=== PATIENT | female | born 1985 | race African-American/Black ===

== ENCOUNTER 2019-12-18 09:13 | Outpatient (REF) | payer OTHER, SELFPAY ==
[2019-12-18 09:57] LABS: MANUAL DIFF FLAG NO
[2019-12-18 10:21] LABS: Basophils Percent Auto 0.5 % (0-2); Eosinophils Absolute Auto 0.2 X10*3/uL (0.0-0.4); Hemoglobin 11.3 g/dl (12.0-16.0); Imm Gran Abs Auto 0.02 X10*3/uL (0.00-0.03); Imm Gran Pct Auto 0.3 % (0.0-0.4); Lymphocytes Absolute Auto 2.2 X10*3/uL (1.2-4.9); Lymphocytes Percent Auto 32.6 % (20-40); Mean Corpuscular HGB Conc 31.4 g/dl (31.0-35.0); Mean Corpuscular Hemoglobin 24.2 pg (27.0-33.0); Mean Corpuscular Volume 77.3 fL (80-98); Monocytes Absolute Auto 0.4 X10*3/uL (0.1-1.2); Monocytes Percent Auto 6.6 % (2-11); Neutrophils Absolute Auto 3.8 X10*3/uL (2.0-8.3); Platelet Count 283 X10*3/uL (160-400); Red Blood Count 4.66 X10*6/uL (4.20-5.50); Red Cell Distribution Width 14.6 % (11.0-16.0); White Blood Count 6.7 X10*3/uL (4.8-10.8)
[2019-12-18 11:09] LABS: Creatinine Urine 23.31 mg/dL; Microalbum/Creatinine Ratio Ur 21.4 ug/mg cr
[2019-12-18 11:12] LABS: Alanine Aminotransferase 22 U/L (0-31); Albumin Level 4.6 g/dL (3.5-5.0); Alkaline Phosphatase 61 U/L (39-117); Anion Gap 11 (12-20); Aspartate Amino Transferase 23 U/L (5-31); Bilirubin Total 0.6 mg/dL (0.0-1.0); Blood Urea Nitrogen 9 mg/dL (9-16); Calcium 9.1 mg/dL (8.4-10.2); Carbon Dioxide 28 mmol/L (22-29); Chloride 103 mmol/L (96-108); Cholesterol 114 mg/dL; Estimated Glomerular Filt Rate > 60; Glucose Fasting 105 mg/dL (60-99); HDL Cholesterol 45 mg/dL; LDL Cholesterol Calculated 53 mg/dl; Potassium 3.9 mmol/l (3.3-5.1); Sodium 138 mmol/L (135-145); Total Protein 7.8 g/dL (6.5-8.0); Triglycerides 80 mg/dL
[2019-12-18 11:38] LABS: Thyroid Stimulating Hormone 0.95 mIU/mL (0.32-4.0)
== END 2019-12-18 09:14 | disposition home or self-care (01) ==
LOC: HO.LAB 09:13
PROVIDERS: PCP Internal Medicine; Visit Provider Physician Assistant
DX: I10 Essential (primary) hypertension (principal)
CPT/HCPCS: 36415; 80053; 80061; 82043; 84443; 85025

== ENCOUNTER 2020-06-15 09:46 | Emergency (ER) | payer OTHER, SELFPAY ==
[2020-06-15 09:52] VITALS: BP 138/102; PULSE 98; RESP 17; TEMP 36.7; O2SAT 99; BMI 30.9
--- NOTE | 2020-06-15 10:06 | PC.NURSE ---
ambulatory with steady gait, changing in to hospital gown for exam
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
[2020-06-15 10:28] VITALS: BP 124/90; PULSE 78; RESP 14; O2SAT 99
== END 2020-06-15 10:35 | disposition home or self-care (01) ==
PROVIDERS: Emergency Provider Emergency Medicine Emergency Medical Services; PCP Internal Medicine
DX: S16.1XXA Strain of muscle, fascia and tendon at neck level, initial encounter (principal); S39.012A Strain of muscle, fascia and tendon of lower back, initial encounter; M54.2 Cervicalgia; M54.6 Pain in thoracic spine; F12.90 Cannabis use, unspecified, uncomplicated; V43.52XA Car driver injured in collision with other type car in traffic accident, initial encounter; Y93.9 Activity, unspecified; Y92.410 Unspecified street and highway as the place of occurrence of the external cause; Y99.9 Unspecified external cause status; Z79.899 Other long term (current) drug therapy
CPT/HCPCS: 99284

== ENCOUNTER 2020-12-15 09:00 | Outpatient (REF) | payer OTHER, SELFPAY ==
--- NOTE | ~2020-12-15 | XR_ITS ---
EXAMINATION: XR CHEST XR THORACIC SPINE CLINICAL INFORMATION: Dorsalgia. COMPARISON: Dorsal spine radiographs 04/29/2014 TECHNIQUE: PA and lateral chest, 3 views thoracic spine. FINDINGS: There are some minimal multilevel degenerative changes seen in the thoracic spine with some mild endplate changes. Vertebral heights and disc spaces are well preserved. Compared to the 2014 study, there has been no interval change. No significant abnormality is seen involving the heart, lungs or mediastinum. XR/XR chest 2V IMPRESSION: Some minimal thoracic spine degenerative changes with no other acute findings.
--- NOTE | ~2020-12-15 | XR_ITS ---
EXAMINATION: XR CHEST XR THORACIC SPINE CLINICAL INFORMATION: Dorsalgia. COMPARISON: Dorsal spine radiographs 04/29/2014 TECHNIQUE: PA and lateral chest, 3 views thoracic spine. FINDINGS: There are some minimal multilevel degenerative changes seen in the thoracic spine with some mild endplate changes. Vertebral heights and disc spaces are well preserved. Compared to the 2014 study, there has been no interval change. No significant abnormality is seen involving the heart, lungs or mediastinum. XR/XR thoracic spine 2V IMPRESSION: Some minimal thoracic spine degenerative changes with no other acute findings.
[2020-12-15 09:44] LABS: Hematocrit 34.6 % (37-47); Hemoglobin 10.7 g/dl (12.0-16.0); Mean Corpuscular HGB Conc 30.9 g/dl (31.0-35.0); Mean Corpuscular Volume 74.2 fL (80-98); Mean Platelet Volume 10.1 fL (9.4-12.3); Platelet Count 298 X10*3/uL (160-400); Red Blood Count 4.66 X10*6/uL (4.20-5.50); Red Cell Distribution Width 15.3 % (11.0-16.0); White Blood Count 6.6 X10*3/uL (4.8-10.8)
[2020-12-15 10:19] LABS: Alanine Aminotransferase 21 U/L (0-31); Albumin Level 4.5 g/dL (3.5-5.0); Alkaline Phosphatase 61 U/L (39-117); Anion Gap 9 (12-20); Aspartate Amino Transferase 20 U/L (5-31); Bilirubin Total 0.3 mg/dL (0.0-1.0); Blood Urea Nitrogen 11 mg/dL (9-16); Calcium 9.4 mg/dL (8.4-10.2); Carbon Dioxide 28 mmol/L (22-29); Chloride 105 mmol/L (96-108); Cholesterol 110 mg/dL; Estimated Glomerular Filt Rate > 60; Glucose Fasting 98 mg/dL (60-99); HDL Cholesterol 42 mg/dL; LDL Cholesterol Calculated 54 mg/dl; Potassium 4.1 mmol/L (3.3-5.1); Sodium 138 mmol/L (135-145); Triglycerides 70 mg/dL
[2020-12-15 10:24] LABS: Estimated Average Glucose 103 mg/dL; Hemoglobin A1c % 5.2 %
[2020-12-15 10:39] LABS: TSH reflex Free T4 1.24 uIU/mL (0.32-4.0)
[2020-12-15 12:26] LABS: Creatinine Urine 65.76 mg/dL; Microalbum/Creatinine Ratio Ur 10.6 ug/mg cr
== END 2020-12-15 09:01 | disposition home or self-care (01) ==
LOC: HO.XRAY 09:00
PROVIDERS: PCP Internal Medicine; Visit Provider Physician Assistant
DX: M54.9 Dorsalgia, unspecified (principal); I10 Essential (primary) hypertension; R73.09 Other abnormal glucose
CPT/HCPCS: 36415; 71046; 72070; 80053; 80061; 82043; 83036; 84443; 85027

== ENCOUNTER 2021-08-08 08:13 | Outpatient (REF) | payer OTHER, SELFPAY ==
--- NOTE | ~2021-08-08 | US_ITS ---
EXAMINATION: US ABDOMEN COMPLETE CLINICAL INFORMATION: Abnormal blood chemistry, cholelithiasis. COMPARISON: Ultrasound abdomen complete 05/17/2019. TECHNIQUE: Real-time imaging of the abdominal viscera. FINDINGS: PANCREAS: Normal. ABDOMINAL AORTA: The proximal, mid, and distal segments are normal in caliber. INFERIOR VENA CAVA: Visualized portions are normal. LIVER: The liver is normal in size. The liver contour is normal. There is diffuse increased liver echogenicity with focal fatty sparing adjacent to liver. No focal hepatic lesion. There is no intrahepatic biliary duct dilatation seen. GALLBLADDER: Gallbladder wall thickness is 0.3 cm. The gallbladder is physiologically distended. Multiple mobile gallstones are present. No evidence of gallbladder wall thickening or pericholecystic fluid. COMMON BILE DUCT: Normal in caliber measuring 0.5 cm in diameter. RIGHT KIDNEY: Normal. No hydronephrosis. No renal calculi or focal parenchymal lesions. The kidney measures 11.9 cm in maximum dimension. LEFT KIDNEY: Normal. No hydronephrosis. No renal calculi or focal parenchymal lesions. The kidney measures 10.9 cm in maximum dimension. SPLEEN: Normal. The spleen measures 9.2 cm in maximum dimension. FREE FLUID: None. US/US abdomen complete IMPRESSION: Diffuse hepatic steatosis with focal fatty sparing adjacent to gallbladder. No solid lesion seen. Rest of the abdominal ultrasound is unremarkable.
--- NOTE | ~2021-08-08 | XR_ITS ---
EXAMINATION: XR CHEST 2 VIEWS CLINICAL INFORMATION: Dorsalgia. COMPARISON: Chest radiographs dated 12/15/2020. TECHNIQUE: Frontal and lateral views of the chest were obtained. FINDINGS: The heart, great vessels, pulmonary vasculature and mediastinum are normal. The lungs show no focal infiltrate, effusion or pneumothorax. There is no acute osseous abnormality. XR/XR chest 2V IMPRESSION: No active cardiopulmonary disease.
[2021-08-08 09:03] LABS: MANUAL DIFF FLAG NO
[2021-08-08 09:39] LABS: Basophils Percent Auto 0.3 % (0-2); Eosinophils Absolute Auto 0.2 X10*3/uL (0.0-0.4); Eosinophils Percent Auto 2.2 % (0-4); Hematocrit 38.6 % (37.0-47.0); Hemoglobin 11.9 g/dl (12.0-16.0); Imm Gran Abs Auto 0.01 X10*3/uL (0.00-0.03); Imm Gran Pct Auto 0.1 % (0.0-0.4); Immature Retic Fraction 10.9 % (3.0-15.9); Lymphocytes Absolute Auto 1.9 X10*3/uL (1.2-4.9); Mean Corpuscular HGB Conc 30.8 g/dl (31.0-35.0); Mean Corpuscular Hemoglobin 24.9 pg (27.0-33.0); Mean Corpuscular Volume 80.9 fL (80.0-98.0); Mean Platelet Volume 10.6 fL (9.4-12.3); Monocytes Absolute Auto 0.5 X10*3/uL (0.1-1.2); Neutrophils Absolute Auto 4.1 x10*3/uL (2.0-8.3); Neutrophils Percent Auto 61.4 % (45-73); Platelet Count 232 X10*3/uL (160-400); Red Blood Count 4.77 X10*6/uL (4.20-5.50); Red Cell Distribution Width 13.7 % (11.0-16.0); Retic HGB Equivalent 29.5 pg (30.0-35.0); Reticulocyte Percent 1.9 % (0.5-1.8); Reticulocytes Absolute 0.092 X10*6/uL (0.026-0.095); White Blood Count 6.7 X10*3/uL (4.8-10.8)
[2021-08-08 10:14] LABS: Alanine Aminotransferase 35 U/L (0-31); Albumin Level 4.3 g/dL (3.5-5.0); Alkaline Phosphatase 53 U/L (39-117); Anion Gap 10 (12-20); Aspartate Amino Transferase 27 U/L (5-31); Bilirubin Total 0.6 mg/dL (0.0-1.0); Blood Urea Nitrogen 11 mg/dL (9-16); Calcium 9.2 mg/dL (8.4-10.2); Carbon Dioxide 27 mmol/L (22-29); Chloride 105 mmol/L (96-108); Estimated Glomerular Filt Rate > 60; Glucose Random 97 mg/dL (60-115); Iron 91 mcg/dL (30-160); Percent Iron Saturation 26 % (15-50); Potassium 4.1 mmol/L (3.3-5.1); Sodium 138 mmol/L (135-145); Total Iron Binding Capacity 349 mcg/dL (228-428); Total Protein 7.6 g/dL (6.5-8.0); Unsaturated Iron Binding 258 ug/dL
[2021-08-08 10:27] LABS: Estimated Average Glucose 105 mg/dL; Hemoglobin A1c % 5.3 %
[2021-08-08 10:37] LABS: Ferritin 50 ng/mL (10-122); Thyroid Stimulating Hormone 0.99 uIU/mL (0.32-4.0)
[2021-08-08 11:08] LABS: Folate 11.4 ng/mL (> or = 4.0); Vitamin B12 474 pg/mL (200-900)
== END 2021-08-08 08:14 | disposition home or self-care (01) ==
LOC: HO.US 08:13
PROVIDERS: PCP Internal Medicine; Visit Provider Internal Medicine
DX: M54.9 Dorsalgia, unspecified (principal); D64.9 Anemia, unspecified; R79.89 Other specified abnormal findings of blood chemistry; K80.20 Calculus of gallbladder without cholecystitis without obstruction
CPT/HCPCS: 36415; 71046; 76700; 80053; 82607; 82728; 82746; 83036; 83540; 84443; 85025; 85045

== ENCOUNTER 2021-10-18 06:02 | Day surgery (SDC) | payer OTHER, MEDICAID, SELFPAY ==
[2021-10-12 13:55] VITALS: BMI 33.3
--- NOTE | 2021-10-17 10:09 | HO.ANESPROP2 ---
Documented by User: Lyric Michaels NP 10/17/21 10:10 HPI - Anesthesia Eval Consult details Narrative: 36yo F for Cholecystectomy Laparoscopic,poss open,poss choliangiogram PMFSH Active Problems Active Problems: All Active Problems (Updated 09/07/21 @ 14:50 by Ed Ferrara MD) Biliary colic (Acute) Fatty liver (Acute) Back pain (Acute) Iron deficiency anemia (Acute) Annual physical exam (Acute) Menorrhagia (Acute) Neck pain (Acute) Constipation (Acute) Cholelithiasis (Acute) Obesity (BMI 30-39.9) (Acute) Impaired glucose metabolism (Acute) HTN (hypertension) (Acute) Past Medical History Medical History (Updated 10/17/21 @ 10:10 by Lyric Michaels NP) Anemia Cholelithiasis HTN (hypertension) Iron deficiency anemia Obesity (BMI 30-39.9) Family History Family History Father Medical history unknown Mother Acute CVA (cerebrovascular accident) Hypertension Son In good health Brother No problems noted. Sister No problems noted. Maternal Uncle Stroke Surgical History Surgical History History of breast mammoplasty History of surgery Social History Social History Housing: Apartment Alcohol intake: current Alcohol intake frequency: does not drink Patient Tobacco Use Status: Never used Tobacco Years Smoked: smokes pot e-Cigarette/Vaping Use: Never Used Second Hand Smoke Exposure: No Use of substances other than those prescribed or required for medical reasons: Yes Substance Use Type: Marijuana Are you DNR?: No Advance Directives: No Advance Directives Information Provided: Yes Recently lost weight without trying: No Nutrition Risks: No Nutritional Risk Patient : No Current occupational status: unemployed Cognitive needs: No Hearing needs: No Vision needs: No Meds Allergies Allergy/AdvReac Type Severity Reaction Status Date / Time No Known Allergies Allergy Unknown NOT Verified 09/07/21 14:16 APPLICABLE Home Medications Medication Instructions Recorded Confirmed Last Taken Type ascorbate calcium (vitamin C) 500 500 mg PO BID 03/22/21 09/07/21 Unknown History mg tablet Exam Exam Date and Time: October 17, 2021 1009 Height,Weight and Vital Signs: Height 5 ft 4 in Weight 87.997 kg Pertinent Lab Results Pertinent Lab Results: Laboratory Tests 08/08/21 08/08/21 09:02 09:02 WBC 6.7 Hgb 11.9 L Hct 38.6 Plt Count 232 Sodium 138 Potassium 4.1 Chloride 105 Carbon Dioxide 27 BUN 11 Creatinine 0.73 Assessment and Plan Assessment Anesthesia Assessment: Chart Reviewed Documented by User: Brandon Prather MD 10/18/21 07:17 [facility] Past Medical History Medical History (Updated 10/17/21 @ 10:10 by Lyric Michaels NP) Anemia Cholelithiasis HTN (hypertension) Iron deficiency anemia Obesity (BMI 30-39.9) Patient : No Family History Family History Father Medical history unknown Mother Acute CVA (cerebrovascular accident) Hypertension Son In good health Brother No problems noted. Sister No problems noted. Maternal Uncle Stroke Family history of problems with anesthesia: No Surgical History Surgical History History of breast mammoplasty History of surgery History of Problems with Anesthesia: No Social History Social History Housing: Apartment Alcohol intake: current Alcohol intake frequency: does not drink Patient Tobacco Use Status: Never used Tobacco Years Smoked: smokes pot e-Cigarette/Vaping Use: Never Used Second Hand Smoke Exposure: No Use of substances other than those prescribed or required for medical reasons: Yes Substance Use Type: Marijuana Are you DNR?: No Advance Directives: No Advance Directives Information Provided: Yes Recently lost weight without trying: No Nutrition Risks: No Nutritional Risk Patient : No Current occupational status: unemployed Cognitive needs: No Hearing needs: No Vision needs: No Meds Allergies Allergy/AdvReac Type Severity Reaction Status Date / Time No Known Allergies Allergy Unknown NOT Verified 09/07/21 14:16 APPLICABLE Home Medications Medication Instructions Recorded Confirmed Last Taken Type ascorbate calcium (vitamin C) 500 500 mg PO BID 03/22/21 09/07/21 Unknown History mg tablet Exam Airway Mallampati Class: I TM Dist: >3cm Neck ROM: Full Loose/Missing/Broken Teeth: No Heart: ok Lungs: ok Assessment and Plan Final Anesthetic Review Family History of Problems with Anesthesia: No History of Problems with Anesthesia: No NPO: Yes ASA Class: II Final Preanesthetic Review: No Changes in Pt Med Stat, Meds/Allgs Chart Reviewed, Consent Obtained/Reviewed and Anes Risks/Benef Reviewed Patient Risk: Low Procedure Risk: Intermediate Anesthetic Plan Anesthetic Plan: GA and Agree w/ Assess. and Plan Disposition: Standard PACU
[2021-10-18] VITALS (10 sets, daily range): BP systolic 117–139; BP diastolic 80–106; PULSE 80–99; RESP 16–18; TEMP 36.7–36.9; O2SAT 96–97; BMI 32.5
[2021-10-18 06:30] LABS: UPreg QC Valid YES; Urine Pregnancy NEGATIVE (NEGATIVE)
[2021-10-18] MEDS: Lactated Ringers 1,000 ML 100 ML IVCONT (06:47)
[2021-10-18] MEDS: Acetaminophen 325 MG TABLET 650 MG PO (06:48)
[2021-10-18] MEDS: Heparin Sodium,Porcine 5,000 UNIT/ML VIAL 5000 UNIT SUBCUT (06:48)
--- NOTE | 2021-10-18 07:15 | MHC.SHP ---
Pre-Procedural Eval Section A Date of Service: 10/18/21 The patient is an INPATIENT: No The History & Physical has been completed within 30 days and I have reviewed it.: Yes Section B Chief Complaint: Calculus of bile duct without cholangitis Allergies: Allergies Allergy/AdvReac Type Severity Reaction Status Date / Time No Known Allergies Allergy Unknown NOT Verified 09/07/21 14:16 APPLICABLE Plan I have reviewed the history and physical and performed a pertinent physical examination on my patient. No changes have occurred unless specified.
--- NOTE | 2021-10-18 07:15 | MHC.SHP ---
Pre-Procedural Eval Section A Date of Service: 10/18/21 Section B Chief Complaint: Calculus of bile duct without cholangitis Details of Present Illness: History of biliary colic and cholelithiasis Relevant Family History (Specify if Yes): No Relevant Social History: None Present Medications: see Short Stay Collaborative assessment Medical History: No relevant PMH History of Previous Operations: No relevant previous surgery Allergies: Allergies Allergy/AdvReac Type Severity Reaction Status Date / Time No Known Allergies Allergy Unknown NOT Verified 09/07/21 14:16 APPLICABLE Review of Systems Sugical H&P ROS: Negative: Constitution, Cardiovascular, Respiratory, Neurological, Psychiatric, Hem-Onc, Allergic/Immunologic, Gastrointestinal, Genitourinary, Musculoskeletal, Integumentary, Endocrine and Eyes/Ears/Nose/Throat Exam Surgical H&P Exam: Normal: HEENT, Normal: Heart, Normal: Lungs and Normal: Abdomen Plan Diagnosis/Plan: Unchanged I have reviewed the history and physical and performed a pertinent physical examination on my patient. No changes have occurred unless specified.
--- NOTE | 2021-10-18 07:16 | P.OP_ITS ---
Operative Note Operative Note Date of Service: 10/18/21 Narrative: Preop diagnosis: [Biliary colic] Postop diagnosis: [Same] Procedure: [Lap chanell] Surgeon: Ed Ferrara MD Assist: [Karen Haro PA-C] Anesthesia: [General endotracheal] Estimated blood loss: [3cc] Specimen: [Gallbladder with content] Intraoperative findings: [The neck of the gallbladder was initially stuck to the hepatic duct. After careful dissection, a very short cystic duct approximately 5 mm by 15 mm was demonstrated. Cystic artery was 4 mm. The portal vein and common bile duct were visible and preserved through the dissection] Indications: [The patient is a 36-year-old woman who is experiencing typical biliary colic and noted to have gallstones on ultrasound. Her common bile duct was within normal parameters. Because of the COVID related issues, she put tried to postpone surgery but is now having symptomatic biliary colic and wishes to have cholecystectomy. Risks, benefits and options were reviewed with the patient. I also reviewed the inherent risks to surgery which include, but are not limited to: Bleeding that could require another operation or blood transfusion, the need for open surgery, the unlikely but possible issue of bile leak that could require an ERCP, the risk of retained common duct stones that could require an ERCP, the risk of common bile duct injury which would require transfer to a larger institution for another operation. Patient seemed to understand her options, declined a 2nd opinion and wants to proceed.] Procedure: [The patient was identified in preoperative holding and again in the operating room and placed supine on the table. The patient voided bladder philosophy and religion instructor, sequential compression stockings were in place, subcu heparin had been administered and antibiotics per protocol were given. The patient was induced in general endotracheal anesthesia administered with excellent effect. An appropriate time-out was performed. A footboard was utilized. The patient's abdomen was widely prepped and draped in the usual manner for surgery using chlorhexidine. Preemptive local was used at all trocar insertion sites. Again at the supraumbilical location and after infiltrating local, made a stab incision and placed a Veress needle without difficulty. An appropriate drop test was performed and a pneumoperitoneum of 15 mmHg was obtained using carbon dioxide. Next, the needle was withdrawn and a 5 mm/30 degree laparoscoped over Optiview trocar was used to access the abdomen without incident. Upon examining the abdomen, there was no evidence of injury from the Veress needle or trocar. Next, 5 mm trocars were placed in the epigastric, subcostal and right anterior axillary line just above the line of the umbilicus. Under direct laparoscopic vision, the 5 mm umbilical port was upsized to a 10 mm. The patient was then positioned in reverse Trendelenburg position and banked left. As the gallbladder was retracted cranially and anteriorly by my medical technician assistant, it became obvious that the neck of the gallbladder was adherent to the common bile duct and hepatic duct. The portal vein was visible in the field given the patient's anatomy. Careful dissection was performed to assess whether not the patient had a Mirrizzi's syndrome, however a very short cystic duct on the junction of the gallbladder was identified and carefully isolated from others to surrounding ductal structures. The cystic artery was also carefully dissected demonstrating a critical view of safety. These structures were double clipped twice proximally once distally and then divided. Electrocautery was used to remove the gallbladder from its fossa on the liver. The specimen was then placed in an Endocatch pouch and delivered through the umbilicus. The operative field was then inspected for hemostasis which was good. The cystic duct and cystic artery clips were noted to be intact and were photographed. The patient was returned to neutral position, her abdomen deflated and the umbilical fascia closed with an 0 Polysorb suture, skin was closed with 4-0 Monocryl sutures. The patient tolerated the procedure well was extubated the recovery in stable condition, all sponge instrument counts were correct. At the patient's request I contacted Clarence at [phone] and explained the operation, dietary & activity restrictions. Questions answered]
[2021-10-18] MEDS: oxyCODONE HCl Immed Release 5 MG TABLET PO (09:37)
[2021-10-18] MEDS: ondansetron HCL 4 MG/2 ML VIAL IVPUSH (10:36)
== END 2021-10-18 10:55 | disposition home or self-care (01) ==
LOC: HO.SSS 06:02
PROVIDERS: Nurse Practitioner; PCP Internal Medicine; Visit Provider Surgery
PROC: 0FT44ZZ Resection of Gallbladder, Percutaneous Endoscopic Approach (ICD-10-PCS; CPT 47562; principal; 2021-10-18 07:30)
DX: K80.10 Calculus of gallbladder with chronic cholecystitis without obstruction (principal); D50.9 Iron deficiency anemia, unspecified; I10 Essential (primary) hypertension; K76.0 Fatty (change of) liver, not elsewhere classified; R73.09 Other abnormal glucose; N92.0 Excessive and frequent menstruation with regular cycle; E66.9 Obesity, unspecified; Z68.33 Body mass index [BMI] 33.0-33.9, adult; Z79.899 Other long term (current) drug therapy
CPT/HCPCS: 47562; 81025; 88304; J0690; J1100; J1885; J2250; J2405; J2795; J3010

== ENCOUNTER 2022-04-02 06:45 | Outpatient (REF) | payer OTHER, SELFPAY ==
[2022-04-02 07:28] LABS: COVID-19 Test Negative (Negative); IDNOW Serial# 16C4AD1C
== END 2022-04-02 06:46 | disposition home or self-care (01) ==
LOC: HO.LAB 06:45
PROVIDERS: Visit Provider Internal Medicine
DX: Z20.822 Contact with and (suspected) exposure to COVID-19 (principal)
CPT/HCPCS: 87635

== ENCOUNTER 2022-07-03 08:58 | Outpatient (REF) | payer OTHER, SELFPAY ==
[2022-07-03 09:09] LABS: MANUAL DIFF FLAG NO
[2022-07-03 09:23] LABS: Basophils Percent Auto 0.4 % (0-2); Eosinophils Absolute Auto 0.2 X10*3/uL (0.0-0.4); Hematocrit 37.7 % (37.0-47.0); Hemoglobin 11.6 g/dl (12.0-16.0); Imm Gran Abs Auto 0.02 X10*3/uL (0.00-0.03); Imm Gran Pct Auto 0.3 % (0.0-0.4); Lymphocytes Absolute Auto 2.6 X10*3/uL (1.2-4.9); Lymphocytes Percent Auto 33.9 % (20-40); Mean Corpuscular HGB Conc 30.8 g/dl (31.0-35.0); Mean Corpuscular Hemoglobin 23.6 pg (27.0-33.0); Mean Corpuscular Volume 76.6 fL (80.0-98.0); Mean Platelet Volume 10.6 fL (9.4-12.3); Monocytes Absolute Auto 0.4 X10*3/uL (0.1-1.2); Monocytes Percent Auto 5.8 % (2-11); Neutrophils Absolute Auto 4.3 x10*3/uL (2.0-8.3); Neutrophils Percent Auto 56.6 % (45-73); Platelet Count 285 X10*3/uL (160-400); Red Blood Count 4.92 X10*6/uL (4.20-5.50); Red Cell Distribution Width 15.1 % (11.0-16.0); White Blood Count 7.6 X10*3/uL (4.8-10.8)
[2022-07-03 10:08] LABS: Alanine Aminotransferase 28 U/L (0-31); Albumin Level 4.3 g/dL (3.5-5.0); Alkaline Phosphatase 62 U/L (39-117); Anion Gap 12 (12-20); Aspartate Amino Transferase 22 U/L (5-31); Bilirubin Total 0.6 mg/dL (0.0-1.0); Blood Urea Nitrogen 9 mg/dL (9-16); Calcium 9.4 mg/dL (8.4-10.2); Carbon Dioxide 25 mmol/L (22-29); Chloride 106 mmol/L (96-108); Cholesterol 101 mg/dL; Estimated Glomerular Filt Rate > 60; Glucose Random 97 mg/dL (60-115); HDL Cholesterol 46 mg/dL; LDL Cholesterol Calculated 36 mg/dl; Potassium 3.9 mmol/L (3.3-5.1); Sodium 139 mmol/L (135-145); Total Protein 7.6 g/dL (6.5-8.0); Triglycerides 96 mg/dL
[2022-07-03 10:37] LABS: Folate 12.3 ng/mL (> or = 4.0); Free T4 (Free Thyroxine) 0.89 ng/dL (0.71-1.85); Thyroid Stimulating Hormone 1.28 uIU/mL (0.32-4.0); Vitamin B12 591 pg/mL (200-900)
== END 2022-07-03 08:59 | disposition home or self-care (01) ==
LOC: HO.LAB 08:58
PROVIDERS: PCP Internal Medicine; Visit Provider Internal Medicine
DX: I10 Essential (primary) hypertension (principal); E78.00 Pure hypercholesterolemia, unspecified
CPT/HCPCS: 36415; 80053; 80061; 82607; 82746; 84439; 84443; 85025

== ENCOUNTER 2022-07-10 08:45 | Outpatient (REF) | payer OTHER, SELFPAY ==
[2022-07-10 14:01] LABS: MANUAL DIFF FLAG NO
[2022-07-10 14:57] LABS: Basophils Percent Auto 0.2 % (0-2); Eosinophils Absolute Auto 0.3 X10*3/uL (0.0-0.4); Eosinophils Percent Auto 3.8 % (0-4); Hemoglobin 10.9 g/dl (12.0-16.0); Imm Gran Abs Auto 0.03 X10*3/uL (0.00-0.03); Imm Gran Pct Auto 0.4 % (0.0-0.4); Immature Retic Fraction 23.2 % (3.0-15.9); Lymphocytes Absolute Auto 2.8 X10*3/uL (1.2-4.9); Lymphocytes Percent Auto 33.2 % (20-40); Mean Corpuscular HGB Conc 31.1 g/dl (31.0-35.0); Mean Corpuscular Hemoglobin 23.4 pg (27.0-33.0); Mean Corpuscular Volume 75.3 fL (80.0-98.0); Mean Platelet Volume 10.5 fL (9.4-12.3); Monocytes Absolute Auto 0.5 X10*3/uL (0.1-1.2); Monocytes Percent Auto 6.3 % (2-11); Neutrophils Absolute Auto 4.7 x10*3/uL (2.0-8.3); Neutrophils Percent Auto 56.1 % (45-73); Platelet Count 257 X10*3/uL (160-400); Red Blood Count 4.65 X10*6/uL (4.20-5.50); Red Cell Distribution Width 15.4 % (11.0-16.0); Retic HGB Equivalent 28.3 pg (30.0-35.0); Reticulocyte Percent 1.9 % (0.5-1.8); Reticulocytes Absolute 0.089 X10*6/uL (0.026-0.095); White Blood Count 8.3 X10*3/uL (4.8-10.8)
[2022-07-10 16:21] LABS: Iron 53 mcg/dL (30-160); Percent Iron Saturation 15 % (15-50); Total Iron Binding Capacity 344 mcg/dL (228-428); Unsaturated Iron Binding 291 ug/dL
[2022-07-10 16:36] LABS: Ferritin 7 ng/mL (10-122)
== END 2022-07-10 08:46 | disposition home or self-care (01) ==
LOC: HO.LAB 08:45
PROVIDERS: PCP Internal Medicine; Visit Provider Internal Medicine
DX: D64.9 Anemia, unspecified (principal)
CPT/HCPCS: 36415; 82728; 83540; 85025; 85045

== ENCOUNTER 2022-11-18 14:14 | Outpatient (AMB) | payer OTHER, SELFPAY ==
[2022-11-18 14:50] VITALS: BP 126/88; PULSE 95; TEMP 36.8; O2SAT 98; BMI 33.8
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
== END 2022-11-18 15:48 | disposition home or self-care (01) ==
PROVIDERS: PCP Internal Medicine; Visit Provider Physician Assistant
DX: M54.9 Dorsalgia, unspecified (principal)
CPT/HCPCS: 99213

== ENCOUNTER 2022-11-20 15:43 | Outpatient (AMB) | payer OTHER, SELFPAY ==
[2022-11-20 16:01] VITALS: BP 124/86; PULSE 94; O2SAT 100; BMI 33.6
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
== END 2022-11-20 17:25 | disposition home or self-care (01) ==
PROVIDERS: PCP Internal Medicine; Visit Provider Nurse Practitioner Family
DX: M54.9 Dorsalgia, unspecified (principal)
CPT/HCPCS: 99213

== ENCOUNTER 2023-01-06 09:16 | Outpatient (AMB) | payer OTHER, SELFPAY ==
[2023-01-06 09:18] VITALS: BP 124/78; PULSE 81; O2SAT 98; BMI 34.0
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
== END 2023-01-06 13:57 | disposition home or self-care (01) ==
PROVIDERS: Visit Provider Internal Medicine
DX: D50.9 Iron deficiency anemia, unspecified (principal); R73.09 Other abnormal glucose; K76.0 Fatty (change of) liver, not elsewhere classified; I10 Essential (primary) hypertension
CPT/HCPCS: 99214

== ENCOUNTER 2023-04-29 09:46 | Outpatient (AMB) | payer OTHER, SELFPAY ==
--- NOTE | 2023-04-29 09:48 | A.OFFPC_ITS ---
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 Patient is here for follow-up. Patient has just received the wegovy medication last week and has just started with the lowest dose. Meanwhile blood pressure has been under control no nausea no vomiting no chest pains no shortness a breath no bowel bladder symptoms. Patient does complain of bilateral lateral knee pain denies any fall or trauma and this has been going on for months. [facility] Medical History (Updated 01/06/23 @ 09:35 by Teressa Huerta MD) Iron deficiency anemia Cholelithiasis Obesity (BMI 30-39.9) HTN (hypertension) Surgical History History of laparoscopic cholecystectomy History of surgery History of breast mammoplasty Family History Father Medical history unknown Mother Acute CVA (cerebrovascular accident) Hypertension Son In good health Brother No problems noted. Sister No problems noted. Maternal Uncle Stroke Social History Housing: Apartment Alcohol intake: current Alcohol intake frequency: does not drink Patient Tobacco Use Status: Never used Tobacco Years Smoked: smokes pot e-Cigarette/Vaping Use: Never Used Second Hand Smoke Exposure: No Substance Use Type: Marijuana Current occupational status: employed Cognitive needs: No Hearing needs: No Vision needs: No Questionnaire PHQ-9 Over the last 2 weeks, how often have you been bothered by any of the following problems? 1. Little interest or pleasure in doing things: not at all 2. Feeling down, depressed, or hopeless: not at all 3. Trouble falling or staying asleep, or sleeping too much: not at all 4. Feeling tired or having little energy: not at all 5. Poor appetite or overeating: not at all 6. Feeling bad about yourself - or that you are a failure or have let yourself or your family down: not at all 7. Trouble concentrating on things, such as reading the newspaper or watching television: not at all 8. Moving or speaking so slowly that other people could have noticed. Or the opposite - being so fidgety or restless that you have been moving around a lot more than usual: not at all 9. Thoughts that you would be better off or of hurting yourself in some way: not at all Total score: 0 Depression Screening Interpretation: Negative Depression Screening Done: Yes Source: Developed by Drs. Fredrick Dowling, Nell Kimbrough, Miller Vang and colleagues, with an educational aranza from [employer]. Thrive Questionnaire Date Thrive assessed: 04/29/23 I am a: Patient What is your living situation today?: I have a steady place to live Within the past 12 months, did the food you bought not last and you didn't have the money to get more?: Never true Within the past 12 months, did you worry whether your food would run out before you got money to buy more?: Never true Do you have trouble paying for medicines?: No Do you have trouble getting transportation to medical appointments?: No Do you have trouble paying your heating and electricity bill?: No Do you have trouble taking care of your child, family member or friend?: No Do you have trouble with day-to-day activities such as bathing, preparing meals, shopping, managing finances, etc.?: No Are you currently unemployed and looking for a job?: No Are you interested in more education?: No Please select the resources that you would like help with: None THRIVE Score: 0 AUDIT C Alcohol Use Questionnaire (AUDIT-C) 1. How often do you have a drink containing alcohol?: Monthly or less 2. How many drinks containing alcohol do you have on a typical day when you are drinking?: 1 or 2 3. How often do you have six or more drinks on one occasion?: Never Total Score: 1 Score Reviewed/Action Taken: No JAYDEN-7 AMB Questionnaire JAYDEN-7 Date JAYDEN - 7 assessed: 04/29/23 Source: Developed by Drs. Fredrick Dowling, Nell Kimbrough, Miller Vang and colleagues, with an educational aranza from [employer]. Physical exam (Primary Care) Vital Signs: Last Vital Signs Pulse 98 04/29/23 09:49 BP 118/86 04/29/23 09:49 Pulse Ox 99 04/29/23 09:49 Oxygen Delivery Method Room Air 04/29/23 09:49 BMI result Body Mass Index 33.3 Tobacco/Smoking Status: Tobacco use Status Tobacco use date assessed 04/29/23 04/29/23 09:50 Patient Tobacco Use Status Never used Tobacco 04/29/23 09:50 e-Cigarette/Vaping Use Never Used 04/29/23 09:50 PHQ-9: PHQ-9 Score PHQ-9: Total score 0 04/29/23 09:50 Depression Screening Interpretation: Negative Thrive Assessment: Date of Thrive Assessment Date Thrive assessed 04/29/23 04/29/23 09:50 Const General: alert; No acute distress Eyes Conjunctivae: conjunctivae normal Resp Auscultation: clear to auscultation bilaterally Cardio Rate: regular rate Rhythm: regular rhythm GI Inspection: Yes normal to inspection Extrem General: Yes normal to inspection and No edema Elbow/forearm/wrist images: 2 1. Bilateral, lateral posterior knee pain with no redness no swelling. 2. Assessment and Plan Assessment & Plan (1) Iron deficiency anemia: Code(s): D50.9 - Iron deficiency anemia, unspecified Plan: Patient was advised to continue with taking iron to help with the iron deficiency and advised blood work. (2) HTN (hypertension): Code(s): I10 - Essential (primary) hypertension Qualifiers: Hypertension type: essential hypertension Qualified Code(s): I10 - Essential (primary) hypertension Plan: Continue with blood pressure medication. Decrease salt intake and exercise presently controlled with amlodipine 10 mg once a day (3) Fatty liver: Code(s): K76.0 - Fatty (change of) liver, not elsewhere classified Plan: Low-fat diet and exercise (4) Obesity (BMI 30-39.9): Code(s): E66.9 - Obesity, unspecified Plan: Diet and exercise. Patient has just started the semaglutide lowest dose. (5) Knee pain: Code(s): M25.569 - Pain in unspecified knee Plan: X-rays requested due to the nature of time that patient has been having the pain and will do a referral to ortho. Orders: Orders 2 XR knee standing BI Today M25.569 - Pain in unspecified knee Referrals 2 Orthopedics Referral M25.569 - Pain in unspecified knee Medications: Refilled 2 amlodipine 10 mg PO DAILY 90 tabs 2RF I10 - Essential (primary) hypertension Coding Level of Care Code Est Pt Level 4 (22734) Diagnoses Iron deficiency anemia D50.9 Essential hypertension I10 Hypertension type: essential hypertension Fatty liver K76.0 Obesity (BMI 30-39.9) E66.9 Knee pain M25.569
[2023-04-29 09:49] VITALS: BP 118/86; PULSE 98; O2SAT 99; BMI 33.3
== END 2023-04-29 10:23 | disposition home or self-care (01) ==
PROVIDERS: PCP Internal Medicine; Visit Provider Internal Medicine
DX: D50.9 Iron deficiency anemia, unspecified (principal); E66.9 Obesity, unspecified; Z68.33 Body mass index [BMI] 33.0-33.9, adult; I10 Essential (primary) hypertension; K76.0 Fatty (change of) liver, not elsewhere classified; M25.561 Pain in right knee; M25.562 Pain in left knee
CPT/HCPCS: 99214

== ENCOUNTER 2023-04-30 15:02 | Outpatient (REF) | payer OTHER, SELFPAY ==
--- NOTE | ~2023-04-30 | XR_ITS ---
EXAMINATION: XR KNEE AP STANDING CLINICAL INFORMATION: Knee pain COMPARISON: None available. TECHNIQUE: AP bilateral standing view of the knees was obtained. FINDINGS: No fracture or joint effusion. Alignment is anatomic. Joint spaces are maintained. No abnormal soft tissue calcification. XR/XR knee standing BI IMPRESSION: Normal knees.
[2023-04-30 15:22] LABS: MANUAL DIFF FLAG NO
[2023-04-30 16:29] LABS: Basophils Percent Auto 0.4 % (0-2); Eosinophils Absolute Auto 0.2 X10*3/uL (0.0-0.4); Eosinophils Percent Auto 2.6 % (0-4); Hematocrit 36.8 % (37.0-47.0); Hemoglobin 11.9 g/dl (12.0-16.0); Imm Gran Abs Auto 0.03 X10*3/uL (0.00-0.03); Imm Gran Pct Auto 0.4 % (0.0-0.4); Immature Retic Fraction 12.8 % (3.0-15.9); Lymphocytes Absolute Auto 2.7 X10*3/uL (1.2-4.9); Lymphocytes Percent Auto 35.1 % (20-40); Mean Corpuscular HGB Conc 32.3 g/dl (31.0-35.0); Mean Corpuscular Hemoglobin 25.2 pg (27.0-33.0); Mean Corpuscular Volume 77.8 fL (80.0-98.0); Mean Platelet Volume 10.4 fL (9.4-12.3); Monocytes Absolute Auto 0.5 X10*3/uL (0.1-1.2); Monocytes Percent Auto 6.7 % (2-11); Neutrophils Absolute Auto 4.2 x10*3/uL (2.0-8.3); Neutrophils Percent Auto 54.8 % (45-73); Platelet Count 310 X10*3/uL (160-400); Red Blood Count 4.73 X10*6/uL (4.20-5.50); Red Cell Distribution Width 14.4 % (11.0-16.0); Retic HGB Equivalent 29.2 pg (30.0-35.0); Reticulocyte Percent 1.8 % (0.5-1.8); Reticulocytes Absolute 0.085 X10*6/uL (0.026-0.095); White Blood Count 7.7 X10*3/uL (4.8-10.8)
[2023-04-30 17:51] LABS: Iron 44 mcg/dL (30-160); Percent Iron Saturation 15 % (15-50); Total Iron Binding Capacity 300 mcg/dL (228-428); Unsaturated Iron Binding 256 ug/dL
[2023-04-30 18:13] LABS: Ferritin 37 ng/mL (10-122)
[2023-04-30 18:23] LABS: Folate 16.3 ng/mL (> or = 4.0); Vitamin B12 676 pg/mL (200-900)
== END 2023-04-30 15:03 | disposition home or self-care (01) ==
LOC: HO.LAB 15:02
PROVIDERS: PCP Internal Medicine; Visit Provider Internal Medicine
DX: D50.9 Iron deficiency anemia, unspecified (principal); M25.561 Pain in right knee; M25.562 Pain in left knee
CPT/HCPCS: 36415; 73565; 82607; 82728; 82746; 83540; 85025; 85045

== ENCOUNTER 2023-05-13 15:00 | Outpatient (AMB) | payer OTHER, SELFPAY ==
[2023-05-13 15:01] VITALS: BMI 33.3
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
== END 2023-05-13 15:29 | disposition home or self-care (01) ==
PROVIDERS: PCP Internal Medicine; Visit Provider Orthopaedic Surgery
DX: M25.561 Pain in right knee (principal); M25.562 Pain in left knee
CPT/HCPCS: 99202

== ENCOUNTER → 2023-05-13 15:00 | Outpatient (BNVA) | payer OTHER, SELFPAY | PROVIDERS: PCP Internal Medicine; Visit Provider Orthopaedic Surgery ==

== ENCOUNTER 2023-06-05 15:28 | Outpatient (REF) | payer OTHER, SELFPAY ==
--- NOTE | ~2023-06-05 | MR_ITS ---
EXAMINATION: MR KNEE WITHOUT CONTRAST, RIGHT CLINICAL INFORMATION: Chronic right knee pain. Lateral pain. COMPARISON: Most recent right knee radiographs dated 04/30/2023. TECHNIQUE: MRI of the knee without contrast was performed using routine sequences on a high-field scanner. FINDINGS: MENISCI: Medial Meniscus: Intact Lateral Meniscus: Intact LIGAMENTS: Cruciate: Intact Collateral: Minimal edema along the periphery of the medial collateral ligament which could represent a grade 1 sprain. Intact fibular collateral ligament. EXTENSOR MECHANISM: Mild distal quadriceps tendinosis. Intact patellar tendon. Normal patellofemoral alignment. ARTICULAR CARTILAGE/BONE: Patellofemoral Compartment: Inferior patellar median ridge and minimal central trochlear articular cartilage signal heterogeneity. Tiny marginal osteophytes. Medial Compartment: Intact articular cartilage. Lateral Compartment: Intact articular cartilage. JOINT FLUID AND BURSAE: Trace joint effusion and trace Conte's cyst. MR/MR knee RT wo con IMPRESSION: 1. Possible grade 1 sprain of the medial collateral ligament. 2. No meniscal tear. 3. Mild distal quadriceps tendinosis. 4. Minimal patellofemoral arthrosis. Trace joint effusion and trace Conte's cyst.
== END 2023-06-05 15:29 | disposition home or self-care (01) ==
LOC: HO.MRI 15:28
PROVIDERS: PCP Internal Medicine; Visit Provider Orthopaedic Surgery
DX: M25.561 Pain in right knee (principal)
CPT/HCPCS: 73721

== ENCOUNTER 2023-06-10 13:14 | Outpatient (REF) | payer OTHER, SELFPAY ==
[2023-06-12 21:59] LABS: TS Negative Control Passed; TS Panel A 0; TS Panel B 0; TS Positive Control Passed; TSpotTB Negative (Negative)
== END 2023-06-10 13:15 | disposition home or self-care (01) ==
LOC: HO.LAB 13:14
PROVIDERS: PCP Internal Medicine; Visit Provider Internal Medicine
DX: I10 Essential (primary) hypertension (principal)
CPT/HCPCS: 36415; 86481

== ENCOUNTER 2023-06-18 11:13 | Outpatient (AMB) | payer OTHER, SELFPAY ==
[2023-06-18 11:39] VITALS: BMI 33.3
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
== END 2023-06-18 12:10 | disposition home or self-care (01) ==
PROVIDERS: PCP Internal Medicine; Visit Provider Orthopaedic Surgery
DX: S83.241A Other tear of medial meniscus, current injury, right knee, initial encounter (principal)
CPT/HCPCS: 99214

== ENCOUNTER → 2023-06-18 11:13 | Outpatient (BNVA) | payer OTHER, SELFPAY | PROVIDERS: PCP Internal Medicine; Visit Provider Orthopaedic Surgery ==

== ENCOUNTER 2023-08-01 05:54 | Day surgery (SDC) | payer OTHER, SELFPAY ==
[2023-07-30 08:10] VITALS: BMI 33.3
--- NOTE | 2023-07-30 12:08 | HO.ANESPROP2 ---
Documented by User: Lyric Michaels NP 07/30/23 12:10 HPI - Anesthesia Eval Consult details Narrative: 37yo F for Right Knee Arthroscopy partial lateral and medial meniscectomy Anesthesia Pre-Procedure Meds Is the patient on any of the following meds?: GLP1/DPP4 PMFSH Active Problems Active Problems: All Active Problems Tear of medial meniscus of right knee (Acute) Left knee pain (Acute) Right knee pain (Acute) Iron deficiency anemia (Acute) Acute back pain less than 4 weeks duration (Acute) Knee pain (Acute) HTN (hypertension) (Acute) Hx laparoscopic cholecystectomy (Acute) Biliary colic (Acute) Fatty liver (Acute) Back pain (Acute) Annual physical exam (Acute) Menorrhagia (Acute) Neck pain (Acute) Constipation (Acute) Cholelithiasis (Acute) Obesity (BMI 30-39.9) (Acute) Impaired glucose metabolism (Acute) Past Medical History Medical History Iron deficiency anemia Cholelithiasis Obesity (BMI 30-39.9) HTN (hypertension) Family History Family History Father Medical history unknown Mother Acute CVA (cerebrovascular accident) Hypertension Son In good health Brother No problems noted. Sister No problems noted. Maternal Uncle Stroke Family history of problems with anesthesia: No Surgical History Surgical History History of laparoscopic cholecystectomy History of surgery History of breast mammoplasty History of Problems with Anesthesia: No Social History Social History Housing: Apartment Alcohol intake: current Alcohol intake frequency: does not drink Patient Tobacco Use Status: Never used Tobacco Years Smoked: smokes pot e-Cigarette/Vaping Use: Never Used Second Hand Smoke Exposure: No Use of substances other than those prescribed or required for medical reasons: Yes Substance Use Type: Marijuana Substance Use Frequency: Occasionally Are you DNR?: No Advance Directives: No Advance Directives Information Provided: Yes Current occupational status: employed 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[place] , 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 Cognitive needs: No Hearing needs: No Vision needs: No Meds Allergies Allergy/AdvReac Type Severity Reaction Status Date / Time No Known Allergies Allergy Unknown NOT Verified 08/01/23 06:08 APPLICABLE Home Medications ?Medication ?Instructions ?Recorded ?Confirmed ?Last Taken ?Type vit 168-iron 27 mg-folic 1 cap PO DAILY 11/20/22 08/01/23 Unknown History acid 800 mcg-omega3 235 mg capsule (One-A-Day -1) Exam Height,Weight and Vital Signs: Height 5 ft 4 in Weight 87.997 kg Assessment and Plan Assessment Anesthesia Assessment: Chart Reviewed Final Anesthetic Review Family History of Problems with Anesthesia: No History of Problems with Anesthesia: No Documented by User: Yulia Jaeger MD 08/01/23 08:10 HPI - Anesthesia Eval Anesthesia Pre-Procedure Meds If yes to any meds - educate patient: Pt education - increased risk of aspiration and/or euvolemic DKA [facility] Past Medical History Medical History Iron deficiency anemia Cholelithiasis Obesity (BMI 30-39.9) HTN (hypertension) Family History Family History Father Medical history unknown Mother Acute CVA (cerebrovascular accident) Hypertension Son In good health Brother No problems noted. Sister No problems noted. Maternal Uncle Stroke Family history of problems with anesthesia: No Surgical History Surgical History History of laparoscopic cholecystectomy History of surgery History of breast mammoplasty History of Problems with Anesthesia: No Social History Social History Housing: Apartment Alcohol intake: current Alcohol intake frequency: does not drink Patient Tobacco Use Status: Never used Tobacco Years Smoked: smokes pot e-Cigarette/Vaping Use: Never Used Second Hand Smoke Exposure: No Use of substances other than those prescribed or required for medical reasons: Yes Substance Use Type: Marijuana Substance Use Frequency: Occasionally Are you DNR?: No Advance Directives: No Advance Directives Information Provided: Yes 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 occupational status: employed 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[place] , 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 Cognitive needs: No Hearing needs: No Vision needs: No Meds Allergies Allergy/AdvReac Type Severity Reaction Status Date / Time No Known Allergies Allergy Unknown NOT Verified 08/01/23 06:08 APPLICABLE Home Medications ?Medication ?Instructions ?Recorded ?Confirmed ?Last Taken ?Type vit 168-iron 27 mg-folic 1 cap PO DAILY 11/20/22 08/01/23 Unknown History acid 800 mcg-omega3 235 mg capsule (One-A-Day -1) Exam Height,Weight and Vital Signs: Height 5 ft 4 in Weight 87.997 kg Vital Signs Temp Pulse Resp BP Pulse Ox O2 Del Method 08/01/23 06:26 98.9 F 96 15 128/89 100 Room Air Pertinent Lab Results Pertinent Lab Results: Lab Results 08/01/23 Range/Units 06:10 Urine Test NEGATIVE (NEGATIVE) Airway Mallampati Class: II TM Dist: >3cm Neck ROM: Full Loose/Missing/Broken Teeth: Yes (Broken tooth top Right back) Heart: RRR Lungs: CTAB Assessment and Plan Assessment Anesthesia Assessment: Anesthesia Plan Discussed and Chart Reviewed Final Anesthetic Review Family History of Problems with Anesthesia: No History of Problems with Anesthesia: No NPO: Yes ASA Class: II Final Preanesthetic Review: No Changes in Pt Med Stat, Meds/Allgs Chart Reviewed, Consent Obtained/Reviewed and Anes Risks/Benef Reviewed Patient Risk: Intermediate Procedure Risk: Low Assessment/Block/Sedation in SS: Assess/Block/Sedation-SS Anesthetic Plan Anesthetic Plan: GA Disposition: Standard PACU
[2023-08-01] VITALS (10 sets, daily range): BP systolic 105–137; BP diastolic 64–93; PULSE 81–96; RESP 12–18; TEMP 36.3–37.2; O2SAT 100; BMI 31.2
[2023-08-01] MEDS: Lactated Ringers 1,000 ML 100 ML IVCONT (06:27)
[2023-08-01 06:53] LABS: UPreg QC Valid YES; Urine Pregnancy NEGATIVE (NEGATIVE)
--- NOTE | 2023-08-01 08:45 | PM.OP ---
Brief Operative Note Date of Service: 08/01/23 Pre-op diagnosis: Right knee medial meniscus tear, right knee lateral meniscus tear Post-op diagnosis: same Procedure: Right knee diagnostic arthroscopy with right knee arthroscopic partial medial meniscectomy, right knee arthroscopic partial lateral meniscectomy Implants: None Surgeon: Hussein Hair MD Anesthesia: GLMA Was an Polishing Machine Operator used for this Procedure?: No Estimated blood loss (mL): 10 Pathology: none sent Condition: stable Disposition: PACU
--- NOTE | 2023-08-01 08:46 | W.PM.OPN ---
Operative Note Operative Note Date of Service: 08/01/23 Narrative: After the patient was identified as Phoebe Xiao and her right knee was initialed by myself they were brought to the operating room where general anesthesia was induced by the anesthesiologist in routine fashion. The patient was given 2 g of IV Ancef for infection prophylaxis. A formal time-out was completed. The patient's right lower extremity was prepped and draped in sterile fashion. Marcaine with epinephrine was injected into the planned incision sites as well as their right knee joint. A # 11 scalpel blade was used to make an anterolateral portal 1 cm proximal to the joint line and 1 cm lateral to the patellar tendon. Blunt trocar technique was used into the suprapatellar pouch with the knee in extension. Diagnostic arthroscopy showed multiple bands of thickened plica which would be excised at the end of the procedure. There were no loose bodies or abnormalities found in either the medial or lateral gutters. There were no significant degenerative changes of the undersurface of the patella or the trochlear groove. The patient's knee was flexed to 45 degrees and a valgus force was placed upon it. The medial compartment was entered. An anteromedial portal was made 1 cm proximal to the joint line and 1 cm medial to the patellar tendon. Probing of the medial meniscus showed a radial tear of the anterior horn. A partial medial meniscectomy was performed using the arthroscopic shaver. Following the partial meniscectomy the remainder of the meniscus tissue was stable. There were no significant degenerative changes of the medial femoral condyle or medial tibial plateau. The patient's knee was then placed into a neutral position. There was no injury to the anterior cruciate ligament. The patient's knee was then placed into the figure of 4 position and the lateral compartment was entered. There were minimal degenerative changes of the lateral femoral condyle and lateral tibial plateau. There was a radial tear of the anterior horn of the lateral meniscus. A partial lateral meniscectomy was performed using the arthroscopic shaver. Following the partial meniscectomy the remainder of the meniscus tissue was stable. The patient's knee was once again brought into extension and the suprapatellar pouch was entered. The arthroscopic shaver and the ArthroCare Wand were used to excise the thickened bands of plica. The knee joint was irrigated and then drained. All arthroscopic instruments were removed. The 2 portals were closed with 3-0 nylon interrupted suture. The knee joint was injected with Marcaine. Dry sterile dressing and Gibran bandages were placed over the patient's knee. The patient was awoken and extubated in the operating room. They were transferred to the recovery room in stable condition.
[2023-08-01] MEDS: cefTRIAXone sodium 1 GM in 0.9 % Sodium Chloride 50 ML IV (09:08)
[2023-08-01] MEDS: oxyCODONE HCl Immed Release 5 MG TABLET PO (09:37)
== END 2023-08-01 10:55 | disposition home or self-care (01) ==
PROVIDERS: Nurse Practitioner; PCP Internal Medicine; Visit Provider Orthopaedic Surgery
PROC: (CPT 29870; principal; 2023-08-01 07:30)
DX: S83.241A Other tear of medial meniscus, current injury, right knee, initial encounter (principal); S83.281A Other tear of lateral meniscus, current injury, right knee, initial encounter; I10 Essential (primary) hypertension; D50.9 Iron deficiency anemia, unspecified; Z79.899 Other long term (current) drug therapy; X58.XXXA Exposure to other specified factors, initial encounter; Y93.9 Activity, unspecified; Y92.9 Unspecified place or not applicable; Y99.9 Unspecified external cause status
CPT/HCPCS: 29880; 81025; J0131; J0171; J0690; J0696; J1100; J2250; J2405; J2704; J2795; J3010

== ENCOUNTER → 2023-08-01 05:54 | Outpatient (BNV) | payer OTHER, SELFPAY | PROVIDERS: PCP Internal Medicine; Visit Provider Orthopaedic Surgery | DX: S83.241A Other tear of medial meniscus, current injury, right knee, initial encounter (principal); S83.281A Other tear of lateral meniscus, current injury, right knee, initial encounter | CPT/HCPCS: 29880 ==

== ENCOUNTER 2023-08-14 09:12 | Outpatient (AMB) | payer OTHER, SELFPAY ==
--- NOTE | 2023-08-14 09:15 | A.OFFVIS_ITS ---
Intake Visit Reasons: PO-Rt Knee 08/01/23 Intake Note: Phoebe a 37 year old female who presents today for a post operative visit of right knee 08/01/23 Patient reports she is doing well, however she does have some tightness on the lateral aspect of knee. Allergies No Known Allergies Allergy (Unknown, Verified 08/14/23 09:24) NOT APPLICABLE HPI HPI PO-Rt Knee 08/01/23 DR: Details: 37-year-old female who returns to the office today for post-op right knee , 08/01/[address] Hair. She states she has no pain however she does experiences tightness and swelling in her knee which makes her unable to extend. She is doing well overall and has no concerns today. [facility] Medical History Iron deficiency anemia Cholelithiasis Obesity (BMI 30-39.9) HTN (hypertension) Surgical History History of laparoscopic cholecystectomy History of surgery History of breast mammoplasty Family History Father Medical history unknown Mother Acute CVA (cerebrovascular accident) Hypertension Son In good health Brother No problems noted. Sister No problems noted. 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 Incision clean, dry and intact. No redness or drainage. ROM is 0-95 degrees. Calf supple, nontender. NVI. Results Reviewed Results Reviewed: Brief Operative Note Date of Service: 08/01/23 Pre-op diagnosis: Right knee medial meniscus tear, right knee lateral meniscus tear Post-op diagnosis: same Procedure: Right knee diagnostic arthroscopy with right knee arthroscopic partial medial meniscectomy, right knee arthroscopic partial lateral meniscectomy Implants: None Surgeon: Hussein Hair MD Anesthesia: GLMA Was an Technical Support Technician used for this Procedure?: No Estimated blood loss (mL): 10 Pathology: none sent Condition: stable Disposition: PACU Assessment & Plan Assessment & Plan (1) Tear of medial meniscus of right knee: Code(s): S83.241A - Other tear of medial meniscus, current injury, right knee, initial encounter Category: Medical Plan Sutures removed today, steri strips applied. She does have an event to attend th afternoon so I educated her avoiding any type of prolonged standing as well as twisting or pivoting motion for the next 4-6 weeks till she recovers. She will begin a course of physical therapy to work on ROM and quad strengthening. I would like to see her back in [address] Hair, sooner if needed. Orders: Orders PT Evaluation and Treatment 08/14/23 S83.241A - Other tear of medial meniscus, current injury, right knee, initial encounter Patient Instructions: Scribed for Florentin Reeder PA-C, by Gary Shepherd medical laboratory technical officer, on 08/14/2023 at 9:30 AM EST.? I, Florentin Reeder PA-C, have personally reviewed and agree with the information entered by the scribe. Coding Level of Care Code Global (96028) Diagnoses Tear of medial meniscus of right knee S83.241A
== END 2023-08-14 09:44 | disposition home or self-care (01) ==
PROVIDERS: PCP Internal Medicine; Visit Provider Physician Assistant
DX: S83.241A Other tear of medial meniscus, current injury, right knee, initial encounter (principal)
CPT/HCPCS: 99024

== ENCOUNTER → 2023-08-14 09:12 | Outpatient (BNVA) | payer OTHER, SELFPAY | PROVIDERS: PCP Internal Medicine; Visit Provider Physician Assistant ==

== ENCOUNTER 2023-09-10 09:06 | Outpatient (AMB) | payer OTHER, SELFPAY ==
--- NOTE | 2023-09-10 09:09 | MHC.OFFVIS ---
Intake Visit Reasons: PO-Rt Knee 08/01/23 Intake Note: Phoebe is a 37 year old female who presents to the office today for a post op right Knee 08/01/23 . She reports mild to moderate intermittent discomfort in her right knee. She denies any fevers or chills. She continues to go to formal physical therapy twice per week. She has not yet returned to work. She does do quite a bit of standing and lifting at work. Allergies No Known Allergies Allergy (Unknown, Verified 09/10/23 09:10) NOT APPLICABLE Medication List - Last Reconciled 09/10/23 by Hussein Hair MD amlodipine 10 mg PO DAILY blood pressure monitor As directed [id number] 27 mg iron- 800 mcg-235 mg (One-A-Day -1) 1 cap PO DAILY semaglutide (weight loss) 0.5 mg (0.5 mL) subcut QWEEK [facility] Medical History Iron deficiency anemia Cholelithiasis Obesity (BMI 30-39.9) HTN (hypertension) Surgical History History of laparoscopic cholecystectomy History of surgery History of breast mammoplasty Family History Father Medical history unknown Mother Acute CVA (cerebrovascular accident) Hypertension Son In good health Brother No problems noted. Sister No problems noted. 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 Xiao continues to do fairly well after undergoing right knee arthroscopic surgery on 08/01/2023. She will continue going to formal physical therapy for now. She will gradually transition to a home exercise program. I will clear her to return to work once her discomfort and strength have improved. She will contact me prior to her follow-up appointment in 2 months should questions or concerns arise. Feel free to call me at any time should questions regarding her orthopedic management arise. Coding Level of Care Code Global (20713) Diagnoses Right knee pain M25.561
== END 2023-09-10 09:34 | disposition home or self-care (01) ==
PROVIDERS: PCP Internal Medicine; Visit Provider Orthopaedic Surgery
DX: M25.561 Pain in right knee (principal)
CPT/HCPCS: 99024

== ENCOUNTER → 2023-09-10 09:06 | Outpatient (BNVA) | payer OTHER, SELFPAY | PROVIDERS: PCP Internal Medicine; Visit Provider Orthopaedic Surgery ==

== ENCOUNTER 2023-09-17 14:15 | Outpatient (AMB) | payer OTHER, SELFPAY ==
[2023-09-17 14:27] VITALS: BP 130/78; PULSE 82; O2SAT 98; BMI 30.4
--- NOTE | 2023-09-17 14:27 | MHC.PC.OV ---
Vital Signs 09/17/23 14:27 Height 5 ft 4 in Weight 177 lb BMI 30.4 BP 130/78 Blood Pressure Location Lt brachial Position Sitting Pulse 82 Pulse Source Pulse Oximeter Pulse Oximetry (%) 98 Oxygen Delivery Method Room Air Intake Visit Reasons: [facility] Knee surgery Allergies No Known Allergies Allergy (Unknown, Verified 09/17/23 14:27) NOT APPLICABLE Medication List - Last Reconciled 09/17/23 by Teressa Huerta MD amlodipine 10 mg PO DAILY blood pressure monitor As directed [id number] 27 mg iron- 800 mcg-235 mg (One-A-Day -1) 1 cap PO DAILY semaglutide (weight loss) 0.5 mg (0.5 mL) subcut QWEEK Tobacco use date assessed: 04/29/23 Dental Screening Dental Screen Date: 04/29/23 HPI [facility] [place] Knee surgery HPI Details 37-year-old obese female with iron deficiency anemia hypertension fatty liver having had knee pain last time. She was seen in 04/22/2023. Patient has been seen by orthopedics and had arthroscopic surgery medial meniscectomy, partial lateral meniscectomy under Dr. Hair 08/01/2023. For right knee medial meniscal tear, right knee lateral meniscal tear and was sent for physical therapy. Patient is here for follow-up [facility] Medical History Iron deficiency anemia Cholelithiasis Obesity (BMI 30-39.9) HTN (hypertension) Surgical History History of laparoscopic cholecystectomy History of surgery History of breast mammoplasty Family History Father Medical history unknown Mother Acute CVA (cerebrovascular accident) Hypertension Son In good health Brother No problems noted. Sister No problems noted. 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 1. Little interest or pleasure in doing things: not at all 2. Feeling down, depressed, or hopeless: not at all 3. Trouble falling or staying asleep, or sleeping too much: not at all 4. Feeling tired or having little energy: not at all 5. Poor appetite or overeating: not at all 6. Feeling bad about yourself - or that you are a failure or have let yourself or your family down: not at all 7. Trouble concentrating on things, such as reading the newspaper or watching television: not at all 8. Moving or speaking so slowly that other people could have noticed. Or the opposite - being so fidgety or restless that you have been moving around a lot more than usual: not at all 9. Thoughts that you would be better off or of hurting yourself in some way: not at all Total score: 0 Depression Screening Interpretation: Negative Depression Screening Done: Yes Source: Developed by Drs. Fredrick Dowling, Nell Kimbrough, Miller Vang and colleagues, with an educational aranza from [employer]. Thrive Questionnaire Date Thrive assessed: 04/29/23 AUDIT C Alcohol Use Questionnaire (AUDIT-C) 1. How often do you have a drink containing alcohol?: Monthly or less 2. How many drinks containing alcohol do you have on a typical day when you are drinking?: 1 or 2 3. How often do you have six or more drinks on one occasion?: Never Total Score: 1 Score Reviewed/Action Taken: No AJYDEN-7 AMB Questionnaire JAYDEN-7 Date JAYDEN - 7 assessed: 04/29/23 Source: Developed by Drs. Fredrick Dowling, Nell Kimbrough, Miller Vang and colleagues, with an educational aranza from [employer]. Physical exam (Primary Care) Vital Signs: Last Vital Signs Pulse 82 09/17/23 14:27 BP 130/78 09/17/23 14:27 Pulse Ox 98 09/17/23 14:27 Oxygen Delivery Method Room Air 09/17/23 14:27 BMI result Body Mass Index 30.4 Tobacco/Smoking Status: Tobacco use Status Tobacco use date assessed 04/29/23 09/17/23 14:31 Patient Tobacco Use Status Never used Tobacco 09/17/23 14:31 e-Cigarette/Vaping Use Never Used 09/17/23 14:31 PHQ-9: PHQ-9 Score PHQ-9: Total score 0 09/17/23 14:33 Depression Screening Interpretation: Negative Thrive Assessment: Date of Thrive Assessment Date Thrive assessed 04/29/23 09/17/23 14:31 Const General: alert; No acute distress Eyes Conjunctivae: conjunctivae normal Resp Auscultation: clear to auscultation bilaterally Cardio Rate: regular rate Rhythm: regular rhythm GI Inspection: Yes normal to inspection Extrem General: Yes normal to inspection and No edema Assessment and Plan Assessment & Plan (1) Tear of medial meniscus of right knee: Comment: July [address]23 Dr. Hair medial and lateral meniscectomy arthroscopic surgery Code(s): S83.241A - Other tear of medial meniscus, current injury, right knee, initial encounter Plan: Patient had surgery July 2023 and has been sent for physical therapy (2) Iron deficiency anemia: Code(s): D50.9 - Iron deficiency anemia, unspecified Plan: Continue to monitor and with last hemoglobin 11.9 in April 2023 (3) HTN (hypertension): Code(s): I10 - Essential (primary) hypertension Qualifiers: Hypertension type: essential hypertension Qualified Code(s): I10 - Essential (primary) hypertension Plan: Continue with blood pressure medication. Decrease salt intake and exercise presently on amlodipine 10 mg once a day (4) Fatty liver: Code(s): K76.0 - Fatty (change of) liver, not elsewhere classified Plan: Low-fat diet and exercise (5) Obesity (BMI 30-39.9): Code(s): E66.9 - Obesity, unspecified Plan: Diet and exercise noted about 20 lb weight loss (6) Impaired glucose metabolism: Code(s): R73.09 - Other abnormal glucose Plan: Decrease the amount of carbohydrate intake, pasta, bread, rice and potatoes are all sugar and that is aside from all the sweet stuff, remember that fruits are good but they are Sweet also. Orders: Orders Complete Blood Count Auto Diff Today I10 - Essential (primary) hypertension Free T4 (Free Thyroxine) Today I10 - Essential (primary) hypertension IRON PROFILE Today I10 - Essential (primary) hypertension UA w Microscopic Today I10 - Essential (primary) hypertension Thyroid Stimulating Hormone Today I10 - Essential (primary) hypertension Comprehensive Met. Panel Today I10 - Essential (primary) hypertension Lipid Panel Today E78.00 - Pure hypercholesterolemia, unspecified, I10 - Essential (primary) hypertension Ferritin Today I10 - Essential (primary) hypertension Reticulocyte Count Today I10 - Essential (primary) hypertension Vitamin B12 and Folate Today I10 - Essential (primary) hypertension Vitamin D 25-OH Total Today I10 - Essential (primary) hypertension Medications: Refilled semaglutide (weight loss) administer weeks 5 through 8 of therapy 0.5 mg (0.5 mL) subcut QWEEK 2 mL 3RF E66.9 - Obesity, unspecified, R73.09 - Other abnormal glucose Coding Level of Care Code Est Pt Level 4 (07675) Diagnoses Tear of medial meniscus of right knee S83.241A Iron deficiency anemia D50.9 Essential hypertension I10 Hypertension type: essential hypertension Fatty liver K76.0 Obesity (BMI 30-39.9) E66.9 Impaired glucose metabolism R73.09
== END 2023-09-17 15:48 | disposition home or self-care (01) ==
PROVIDERS: PCP Internal Medicine; Visit Provider Internal Medicine
DX: S83.241A Other tear of medial meniscus, current injury, right knee, initial encounter (principal); D50.9 Iron deficiency anemia, unspecified; I10 Essential (primary) hypertension; K76.0 Fatty (change of) liver, not elsewhere classified; E66.9 Obesity, unspecified; R73.09 Other abnormal glucose
CPT/HCPCS: 99214

== ENCOUNTER 2023-10-27 09:00 | Outpatient (RCR) | payer OTHER, SELFPAY ==
--- NOTE | 2023-08-21 10:15 | MHC.PT.EP ---
[facility] [place] Office [place] Office [place] Office [address] Diana Stuart [address] [phone] F: [phone] F: [phone] F: [phone] F: [phone] Physical Therapy Plan of Care Date of Evaluation: 08/20/23 Date of Surgery: 08/01/2023 Diagnosis: RIGHT knee tear of medial mensicus ( Dx) RIGHT knee meniscectomy (med and lat) (DOS:08/01/23) (RS) Assessment: PT orders received s/p medial and lateral meniscectomy DOS: 08/01/23, referred by [facility] Ta-Marie Reeder PA-C, surgery by Dr. Reginaldo MD. Pt tolerated pt session well, pt attends therapy following R knee meniscectomy (med and lat). 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 Pt demonstrates reduced WB through R LE, reduced knee flexion, and reduced stride length, pt also mentioned difficulty w/ stairs. Additionally, strength assessment reveal pt is lacking substantial strength in R hip flexion and R knee flexion/extension d/t pain and tightness . Pt is also limited in R knee ROM and STM revealed tissue tightness over lateral aspect of R quad and ITB. Pt was shown quad set as HEP to improve strength in preparation for PT as well as heel slides and hamstring stretch to improve ROM/reduce tightness. Pt completed all exercises well. Future sessions will look to restore ROM and strength of R LE to allow pt to participate in daily activities. 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 Manual therapy to restore motion and function. Therapeutic exercise to improve strength and flexibility. Neuromuscular re-education for posture and balance. Therapeutic activities to return to functional activities of daily living. Electronically signed by: Romain Jacobs, PT, DPT Please sign and return to therapist. Thank you for your referral.
--- NOTE | 2023-08-21 13:28 | MHC.PT.EP ---
[facility] [place] Office [place] Office [place] Office [address] Diana Stuart [address] [phone] F: [phone] F: [phone] F: [phone] F: [phone] Physical Therapy Plan of Care Date of Evaluation: 08/20/23 Date of Surgery: 08/01/2023 Diagnosis: RIGHT knee tear of medial mensicus ( Dx) RIGHT knee meniscectomy (med and lat) (DOS:08/01/23) (RS) Assessment: PT orders received s/p medial and lateral meniscectomy DOS: 08/01/23, [place] [facility] [place] Ta-Marie Reeder PA-C, surgery by Dr. Reginaldo MD. Pt tolerated pt session well, pt attends therapy following R knee meniscectomy (med and lat). 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 Pt demonstrates reduced WB through R LE, reduced knee flexion, and reduced stride length, pt also mentioned difficulty w/ stairs. Additionally, strength assessment reveal pt is lacking substantial strength in R hip flexion and R knee flexion/extension d/t pain and tightness . Pt is also limited in R knee ROM and STM revealed tissue tightness over lateral aspect of R quad and ITB. Pt was shown quad set as HEP to improve strength in preparation for PT as well as heel slides and hamstring stretch to improve ROM/reduce tightness. Pt completed all exercises well. Future sessions will look to restore ROM and strength of R LE to allow pt to participate in daily activities. 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 Manual therapy to restore motion and function. Therapeutic exercise to improve strength and flexibility. Neuromuscular re-education for posture and balance. Therapeutic activities to return to functional activities of daily living. Electronically signed by: Romain Jacobs, PT, DPT Please sign and return to therapist. Thank you for your referral.
--- NOTE | 2023-10-27 11:22 | MHC.PT.DC ---
[facility] [place] Office [place] Office [place] Office [address] Diana Stuart [address] [phone] F: [phone] F: [phone] F: [phone] F: [phone] Physical Therapy Discharge Report Diagnosis: RIGHT knee tear of medial mensicus (MD Wolff) RIGHT knee meniscectomy (med and lat) (DOS:08/01/23) (RS) Date of Surgery: 08/01/2023 Date of Evaluation: 08/20/23 Date of Discharge: 10/27/23 Treatments to Date: 18 Cancellations to Date: No Shows to Date: Discharge Status: Achieved Goals Improved Function Independent with HEP Discharge Summary: Phoebe demonstrated significant improvement with PT interventions; presents today with full AROM of her R knee, full strength and is able to perform functional movements related to work such as ascend/descend stairs, lunge/kneel to floor and squat. She is prepared for discharge and has HEP to maintain gains made in PT. Electronically signed by: Romain Jacobs, PT, DPT Please sign and return to therapist. Thank you for your referral.
== END 2023-10-27 11:22 | disposition home or self-care (01) ==
LOC: HO.PT 09:00
PROVIDERS: PCP Internal Medicine; Visit Provider Physician Assistant
DX: S83.241D Other tear of medial meniscus, current injury, right knee, subsequent encounter (principal)
CPT/HCPCS: 97110; 97112; 97116; 97140; 97161; 97530; 97535

== ENCOUNTER 2023-11-11 09:22 | Outpatient (AMB) | payer OTHER, SELFPAY ==
[2023-11-11 09:24] VITALS: BMI 30.4
--- NOTE | 2023-11-11 09:24 | A.OFFVIS_ITS ---
Vital Signs 11/11/23 09:24 Height 5 ft 4 in Weight 177 lb BMI 30.4 Intake Visit Reasons: OV-Rt Knee 08/01/23 , Left knee pain Intake Note: Phoebe is a 37 year old female who presents to the office today for a post op right Knee 08/01/23. She reports mild intermittent discomfort in her right knee. Today she is most concerned with progressively worsening left knee pain and giving way. The patient describes her left knee pain as sharp and severe in nature. Most of the pain is along the medial aspect of her left knee. Her left knee pain has gotten worse over the last year in spite of continued non operative treatments. She has failed the last 6 weeks of conservative treatment. She has done physical therapy exercises which aggravated her pain. She has also tried Tylenol and anti-inflammatory medicines which gave her minimal relief. She states that her left knee will give out several times per day. Allergies No Known Allergies Allergy (Unknown, Verified 09/17/23 14:27) NOT APPLICABLE Medication List - Last Reconciled 11/11/23 by Hussein Hair MD amlodipine 10 mg PO DAILY blood pressure monitor As directed liraglutide (weight loss) (Saxenda) inject subcutaneously once daily: week 1 = 0.6 mg; week 2 = 1.2 mg; week 3 = 1.8 mg; week 4 = 2.4 mg; then 3 mg daily subcut [id number] 27 mg iron- 800 mcg-235 mg (One-A-Day -1) 1 cap PO DAILY PFS Medical History Iron deficiency anemia Cholelithiasis Obesity (BMI 30-39.9) HTN (hypertension) Surgical History History of laparoscopic cholecystectomy History of surgery History of breast mammoplasty Family History Father Medical history unknown Mother Acute CVA (cerebrovascular accident) Hypertension Son In good health Brother No problems noted. Sister No problems noted. 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 Cognitive needs: No Hearing needs: No Vision needs: No Physical Exam Vital Signs: BMI result Body Mass Index 30.4 Const Other: Well-nourished well-developed very friendly female awake alert and oriented x3 in no acute distress Extrem Other: Bilateral lower extremity examination shows good capillary refill, no skin lesions noted, normal sensation light touch Right knee examination shows that the surgical incisions are well healed, no erythema, minimal discomfort with range of motion, no instability Left knee examination shows a minimal effusion, minimal crepitus with range of motion, tenderness along her medial joint line, positive Shandra's test Results Reviewed Results Reviewed: Standing full weight-bearing x-rays of the patient's left knee taken previously show minimal joint space narrowing, no acute bony abnormalities Assessment & Plan Assessment & Plan (1) Left knee pain: Code(s): M25.562 - Pain in left knee Category: Medical Plan Ms. Xiao is doing well after undergoing right knee arthroscopic surgery on 08/01/2023. She does have progressively worsening left knee pain and mechanical symptoms most likely due to a tear of her medial meniscus. Thus, I will send her for an MRI of her left knee for further evaluation. I will see her back once the MRI is completed to discuss the findings and treatment options. Feel free to call me at any time should questions regarding her orthopedic management arise. I spent 20 minutes in reviewing the patient's records and imaging studies, seeing the patient and documenting in the medical record. Orders: Orders MR knee LT wo con Today M25.562 - Pain in left knee Coding Level of Care Code Est Pt Level 3 (29813) Complex EM visit Add On G2211 Diagnoses Left knee pain M25.562
== END 2023-11-11 09:44 | disposition home or self-care (01) ==
PROVIDERS: PCP Internal Medicine; Visit Provider Orthopaedic Surgery
DX: M25.562 Pain in left knee (principal)
CPT/HCPCS: 99213

== ENCOUNTER → 2023-11-11 09:22 | Outpatient (BNVA) | payer OTHER, SELFPAY | PROVIDERS: PCP Internal Medicine; Visit Provider Orthopaedic Surgery ==

== ENCOUNTER 2023-12-01 18:51 | Outpatient (REF) | payer OTHER, SELFPAY ==
--- NOTE | ~2023-12-01 | MR_ITS ---
EXAMINATION: MR KNEE WITHOUT CONTRAST, LEFT CLINICAL INFORMATION: Left knee pain. COMPARISON: Left knee radiographs dated 04/30/2023. TECHNIQUE: MRI of the knee without contrast was performed using routine sequences on a high-field scanner. FINDINGS: MENISCI: Medial Meniscus: Intact Lateral Meniscus: Intact LIGAMENTS: Cruciate: Increased T2 signal within the anterior cruciate ligament which could represent a grade 1 sprain versus early mucoid degeneration. No measurable tear. Intact posterior cruciate ligament. Collateral: Mild edema adjacent to the medial collateral ligament consistent with a grade 1 sprain. Intact fibular collateral ligament. EXTENSOR MECHANISM: Small superior patellar enthesophyte. Mild distal quadriceps tendinosis. Intact patellar tendon. Normal patellofemoral alignment. TT-TG distance within normal limits. No patella tawnya. Edema within the superolateral aspect of Hoffa's fat pad, which can be seen in the setting of patellar tendon lateral femoral condyle friction syndrome. ARTICULAR CARTILAGE/BONE: Patellofemoral Compartment: Intact articular cartilage. Medial Compartment: Intact articular cartilage. Lateral Compartment: Intact articular cartilage. JOINT FLUID AND BURSAE: Trace joint effusion and trace Conte's cyst. MR/MR knee LT wo con IMPRESSION: 1. Grade 1 sprain of the medial collateral ligament. 2. Increased T2 signal within the anterior cruciate ligament which could represent a grade 1 sprain versus early mucoid degeneration. No measurable tear. 3. No meniscal tear. 4. Mild distal quadriceps tendinosis. Edema within the superolateral aspect of Hoffa's fat pad, which can be seen in the setting of patellar tendon lateral femoral condyle friction syndrome. Normal patellofemoral alignment. 5. Trace joint effusion and trace Conte's cyst. Electronically signed by: Juventino Lugo MD 12/04/2023 11:18 AM EDT
== END 2023-12-01 18:52 | disposition home or self-care (01) ==
LOC: HO.MRI 18:51
PROVIDERS: PCP Internal Medicine; Visit Provider Orthopaedic Surgery
DX: M25.562 Pain in left knee (principal)
CPT/HCPCS: 73721

== ENCOUNTER 2023-12-24 14:32 | Outpatient (AMB) | payer OTHER, SELFPAY ==
--- NOTE | 2023-12-24 14:32 | A.OFFVIS_ITS ---
Vital Signs 12/24/23 14:33 Height 5 ft 4 in Weight 177 lb BMI 30.4 Intake Visit Reasons: OV-Left knee MRI review Intake Note: Phoebe is a 38 yea old female who presents with complaints of intermittent discomfort along the anterior aspect of her left knee. The patient continues with her home exercise program. She denies any locking or giving way. The patient did undergo right knee arthroscopic surgery on 08/01/2023. She denies any pain in her right knee. Allergies No Known Allergies Allergy (Unknown, Verified 12/24/23 14:37) NOT APPLICABLE Medication List - Last Reconciled 12/25/23 by Hussein Hair MD amlodipine 10 mg PO DAILY blood pressure monitor As directed liraglutide (weight loss) (Saxenda) inject subcutaneously once daily: week 1 = 0.6 mg; week 2 = 1.2 mg; week 3 = 1.8 mg; week 4 = 2.4 mg; then 3 mg daily subcut [id number] 27 mg iron- 800 mcg-235 mg (One-A-Day -1) 1 cap PO DAILY PFSH Medical History Iron deficiency anemia Cholelithiasis Obesity (BMI 30-39.9) HTN (hypertension) Surgical History History of laparoscopic cholecystectomy History of surgery History of breast mammoplasty Family History Father Medical history unknown Mother Acute CVA (cerebrovascular accident) Hypertension Son In good health Brother No problems noted. Sister No problems noted. 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 Cognitive needs: No Hearing needs: No Vision needs: No Physical Exam Vital Signs: BMI result Body Mass Index 30.4 Const Other: Well-nourished well-developed very friendly female awake alert and oriented x3 in no acute distress Extrem Other: Bilateral lower extremity examination shows good capillary refill, no skin lesions noted, normal sensation light touch Bilateral knee examination shows minimal effusions, no crepitus with range of motion, no joint line tenderness, no instability Results Reviewed Results Reviewed: MRI of the patient's left knee shows no evidence of meniscus or ligamentous tearing, mild quadriceps tendinosis Assessment & Plan Assessment & Plan (1) Left knee pain: Code(s): M25.562 - Pain in left knee Category: Medical Plan Ms. Xiao continues to do well after undergoing right knee arthroscopic surgery on 08/01/2023. She does have intermittent left knee discomfort due to quadriceps tendinosis. At this point the patient's symptoms are tolerable to her. We will hold off on physical therapy for now. She will follow up with me on an as- needed basis should her symptoms worsen in any way. Feel free to call me at any time should questions regarding her orthopedic management arise. I spent 22 minutes in reviewing the patient's records and imaging studies, paulino manzanares the patient and documenting in the medical record. Coding Level of Care Code Est Pt Level 3 (33701) Complex EM visit Add On G2211 Diagnoses Left knee pain M25.562
[2023-12-24 14:33] VITALS: BMI 30.4
== END 2023-12-24 14:50 | disposition home or self-care (01) ==
PROVIDERS: PCP Internal Medicine; Visit Provider Orthopaedic Surgery
DX: M25.562 Pain in left knee (principal)
CPT/HCPCS: 99213

== ENCOUNTER → 2023-12-24 14:32 | Outpatient (BNVA) | payer OTHER, SELFPAY | PROVIDERS: PCP Internal Medicine; Visit Provider Orthopaedic Surgery ==

== ENCOUNTER 2024-02-19 09:38 | Outpatient (REF) | payer OTHER, SELFPAY ==
--- NOTE | ~2024-02-19 | XR_ITS ---
EXAMINATION: XR KNEE, RIGHT CLINICAL INFORMATION: M25.561 - Pain in right knee COMPARISON: MRI dated 06/05/2023 TECHNIQUE: AP, lateral, and both oblique views of the right knee. FINDINGS: Suprapatellar soft tissues are swollen and edematous. Trace joint effusion. No fracture or malalignment. Small enthesopathic spurs at the patella and tibial tuberosity. Joint spaces are well-preserved. XR/XR knee RT 4V IMPRESSION: Suprapatellar soft tissue swelling and trace joint effusion. No acute osseous findings. Electronically signed by: Raul Chung MD 02/21/2024 11:23 PM [facility]
== END 2024-02-19 09:39 | disposition home or self-care (01) ==
LOC: HO.HMGCX 09:38
PROVIDERS: PCP Internal Medicine; Visit Provider Physician Assistant
DX: M25.561 Pain in right knee (principal)
CPT/HCPCS: 73564

== ENCOUNTER 2024-02-19 09:38 | Outpatient (AMB) | payer OTHER, SELFPAY ==
[2024-02-19 09:43] VITALS: BP 122/80; PULSE 98; O2SAT 98; BMI 31.6
--- NOTE | 2024-02-19 09:43 | AM.OFFWIN_ITS ---
Intake Vital Signs 02/19/24 09:43 Height 5 ft 4 in Weight 184 lb BMI 31.6 BP 122/80 Blood Pressure Location Rt brachial Position Sitting Pulse 98 Pulse Source Pulse Oximeter Pulse Oximetry (%) 98 Oxygen Delivery Method Room Air Intake Visit Reasons: EP pain on RT knee Intake Note: Patient here for right knee pain and swelling that started about 2-3 days ago. She states she recently had surgery on that knee about 6 months ago. Patient Tobacco Use Status: Never used Tobacco Allergies No Known Allergies Allergy (Unknown, Verified 02/19/24 09:44) NOT APPLICABLE Do you need a note to return to daycare/school/sports/work: Yes HPI HPI Comments History of Present Illness Details History of Present Illness The patient is a 38-year-old female presenting with right knee pain and swelling. The patient had a history of right knee surgery for a meniscal tear, which was performed on 08/01/2023, where meniscal repair and fluid removal were conducted. The patient's postoperative course was initially uneventful, and she attended physical therapy. The right knee pain resurfaced a couple of days ago without any known injury. 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 The pain is described as constant and localized around the side of the right knee, without relief from positional changes but alleviated with rest. No involvement of the ankle was noted, and there was no pain behind the knee. The patient reported mild swelling, which she has managed with icing and [id number] naproxen. The patient has not inspected her knee's condition this morning, and she plans to follow up with an orthopedic evaluation on the upcoming Friday. The current issue is impacting her work as she has to be on her feet for extended periods. Physical Exam General: Cooperative, healthy appearing, comfortable, no acute distress and well developed Orientation: Patient oriented x3 Limitations: limping gait Head: Normal to inspection Ears: Hearing grossly normal bilaterally Nose: Normal external nose present Face and sinus: Normal facial exam Eyes: Appearance normal, both eyes and all related structures Neck: Normal visual inspection and Yes full ROM Respiratory: Normal respiratory effort and able to speak in complete sentences. Clear to auscultation bilaterally Cardiovascular: Regular rate and rhythm. Normal S1 and S2 Skin: No rashes or lesions noted Neuro: Patient oriented x3 Extremities: as below [facility] Medical History Iron deficiency anemia Cholelithiasis Obesity (BMI 30-39.9) HTN (hypertension) Surgical History History of laparoscopic cholecystectomy History of surgery History of breast mammoplasty Family History Father Medical history unknown Mother Acute CVA (cerebrovascular accident) Hypertension Son In good health Brother No problems noted. Sister No problems noted. 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 Cognitive needs: No Hearing needs: No Vision needs: No Review of Systems Const All systems reviewed & are unremarkable except as noted in HPI and below Physical Exam Vital Signs: Last Vital Signs Pulse 98 02/19/24 09:43 BP 122/80 02/19/24 09:43 Pulse Ox 98 02/19/24 09:43 Oxygen Delivery Method Room Air 02/19/24 09:43 BMI result Body Mass Index 31.6 Extrem Right lower extremity: normal to inspection, full ROM and knee Details: normal to inspection, tenderness Location: of the lateral joint line and of the infrapatellar area; not of the patella, not of the tibial tuberosity, not of the medial joint line, not of the lateral joint line and not of the pre-patellar area, swelling (slight throughout), normal ROM and knee ligament exam normal; no abrasions, no lacerations, no ecchymosis, no deformity and no unusual warmth Assessment & Plan Assessment & Plan (1) Right knee pain: Code(s): M25.561 - Pain in right knee Qualifiers: Chronicity: acute Qualified Code(s): M25.561 - Pain in right knee Plan: Plan - Recommend using a knee brace or wrap for compression and support for the next 3-4 days. - Advise continuation of naproxen as an anti-inflammatory treatment, taken regularly for the next 3-4 days. - Recommend icing the affected knee to reduce inflammation and swelling. - Plan for the patient to have an X-ray of the right knee. - Encouraged pt to attend scheduled follow-up with an orthopedist on Friday for potential further imaging, such as an MRI, and evaluation. - Advise resting the knee and considering taking the weekend off work to avoid exacerbating the condition. Provided a work excuse note for rest. Patient was informed and verbally consented to the use of an ambient scribe for clinic note documentation during this visit. Orders: Orders XR knee RT 4V Today M25.561 - Pain in right knee Coding Level of Care Code Est Pt Level 4 (11543) Diagnoses Acute pain of right knee M25.561 Chronicity: acute
== END 2024-02-19 10:42 | disposition home or self-care (01) ==
PROVIDERS: PCP Internal Medicine; Visit Provider Physician Assistant
DX: M25.561 Pain in right knee (principal)

== ENCOUNTER 2024-02-23 12:54 | Outpatient (AMB) | payer OTHER, SELFPAY ==
[2024-02-23 12:56] VITALS: BMI 31.6
--- NOTE | 2024-02-23 12:56 | A.OFFVIS_ITS ---
Vital Signs 02/23/24 12:56 Height 5 ft 4 in Weight 184 lb BMI 31.6 Intake Visit Reasons: Right knee discomfort Intake Note: Phoebe is a 38 year old female who presents with complaints of intermittent discomfort in her right knee after undergoing right knee arthroscopic surgery on 08/01/2023. She denies any fevers or chills. She states that at times it feels like her right knee will give out. She has tried Tylenol and anti-inflammatory medicines which gave her mild relief. The patient states that both her mother and grandmother had ?arthritis?. She is not sure if they had rheumatoid arthritis. Allergies No Known Allergies Allergy (Unknown, Verified 02/23/24 13:01) NOT APPLICABLE Medication List - Last Reconciled 02/23/24 by Hussein aHir MD amlodipine 10 mg PO DAILY blood pressure monitor As directed [id number] 27 mg iron- 800 mcg-235 mg (One-A-Day -1) 1 cap PO DAILY PFSH Medical History Iron deficiency anemia Cholelithiasis Obesity (BMI 30-39.9) HTN (hypertension) Surgical History History of laparoscopic cholecystectomy History of surgery History of breast mammoplasty Family History Father Medical history unknown Mother Acute CVA (cerebrovascular accident) Hypertension Son In good health Brother No problems noted. Sister No problems noted. 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 Xiao presents with continued intermittent discomfort after undergoing right knee arthroscopic surgery on 08/01/2023 due to continued inflammation versus possible rheumatoid arthritis or infectious disease such as Lyme disease. Thus, I will send the patient for blood work for further evaluation. I will contact her when the blood work results are available. I also gave her a prescription for a Medrol Dosepak to help with her discomfort in the meantime. Feel free to call me at any time should questions regarding her orthopedic management arise. I spent 21 minutes in reviewing the patient's records and imaging studies, seeing the patient and documenting in the medical record. Orders: Orders Erythrocyte Sedimentation Rate 02/23/24 M25.50 - Pain in unspecified joint C Reactive Protein 02/23/24 M25.50 - Pain in unspecified joint Lyme IgG/IgM w/reflex to WB 02/23/24 M25.50 - Pain in unspecified joint NERIS Reflex Titer and Pattern 02/23/24 M25.50 - Pain in unspecified joint Rheumatoid Factor 02/23/24 M25.50 - Pain in unspecified joint Medications: New methylprednisolone (Medrol (Teto)) PO PER PKG DIR 21 ea 0RF Coding Level of Care Code Est Pt Level 3 (72580) Complex EM visit Add On G2211 Diagnoses Joint pain M25.50
== END 2024-02-23 13:23 | disposition home or self-care (01) ==
PROVIDERS: PCP Internal Medicine; Visit Provider Orthopaedic Surgery
DX: M25.50 Pain in unspecified joint (principal)
CPT/HCPCS: 99213

== ENCOUNTER 2024-02-23 12:54 | Outpatient (REF) | payer OTHER, SELFPAY ==
[2024-02-23 15:47] LABS: C Reactive Protein 0.11 mg/dL (< or = 0.50)
[2024-02-23 16:05] LABS: Rheumatoid Factor < 13.0 IU/mL (<15.0)
[2024-02-23 17:26] LABS: Erythrocyte Sedimentation Rate 13 MM/HR (0-20)
[2024-02-25 06:14] LABS: Lyme Abs Screen <0.90 index
[2024-02-26 15:38] LABS: Anti Nuclear Antibody Screen POSITIVE (NEGATIVE)
== END 2024-02-23 12:55 | disposition home or self-care (01) ==
LOC: HO.LAB 12:54
PROVIDERS: PCP Internal Medicine; Visit Provider Orthopaedic Surgery
DX: M25.50 Pain in unspecified joint (principal)
CPT/HCPCS: 36415; 85652; 86038; 86039; 86140; 86431; 86617; 86618

== ENCOUNTER 2024-07-06 10:49 | Outpatient (AMB) | payer OTHER, SELFPAY ==
[2024-07-06 10:53] VITALS: BP 110/80; PULSE 94; O2SAT 99; BMI 31.7
--- NOTE | 2024-07-06 10:53 | A.OFFVIS_ITS ---
Vital Signs 07/06/24 10:53 Height 5 ft 4 in Weight 184 lb 8.43 oz BMI 31.7 BP 110/80 Blood Pressure Location Rt brachial Position Sitting Pulse 94 Pulse Source Pulse Oximeter Pulse Oximetry (%) 99 Oxygen Delivery Method Room Air Intake Visit Reasons: +[facility]/internal referral Intake Note: Patient presents today for a +Cecy result. Accompanied by: Self / Same As Patient Allergies No Known Allergies Allergy (Unknown, Verified 07/06/24 11:00) NOT APPLICABLE HPI HPI +[facility]/internal referral: Details: New patient evaluation for positive CECY 1:320 February 2024. She had right knee swelling in January. Pain and swelling for a few days 2-3 days. Used aleve or tylenol. Prior to knee swelling she had right knee arthroscopic procedure to repair meniscal tear. She completed physical therapy and was doing well. No prior episode of joint swelling. No recurrent joint swelling or pain. She feels well. No fever, dyspnea, pleurisy, oral or genital ulcer, rash, photosensitivity, skin tightness, raynauds' syndrome. She had ectopic and had a procedure for it. She has 1 child who is healthy without complications during childbirth. Denies miscarriages. Denies DVT or PE. +urinary frequency for few months +dry eyes and dry mouth. She may have seasonal allergies related to pollen Chronic microcytic anemia. She reports she has iron deficiency. She has heavy menstrual periods. She did not tolerate iron tablet prescribed by PCP in the past. She takes vitamin to obtain iron. PMx: HTN Psx: R knee arthroscopic procedure 07/2024 meniscus tear repair, breast reduction 2007 and cholecystectomy 2021. Medication list reviewed Osteoarthritis is present in her family. No history of SLE, lupus or Sjogren syndrome. 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 Occasional drinks alcohol and has marijuana. [facility] Medical History Iron deficiency anemia Cholelithiasis Obesity (BMI 30-39.9) HTN (hypertension) Surgical History History of laparoscopic cholecystectomy History of surgery History of breast mammoplasty Family History Father Medical history unknown Mother Acute CVA (cerebrovascular accident) Hypertension Son In good health Brother No problems noted. Sister No problems noted. 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 Good respiratory effort Skin: No lesions seen MSK: No synovitis. Tender left medial knee on palpation. No knee effusion. Normal range of motion of upper extremity and lower extremity. Assessment & Plan Assessment & Plan (1) Positive CECY (antinuclear antibody): Comment: In January she presented with right knee pain and swelling that self resolved within 2-3 days without reoccurrence. She has sicca symptoms with history of chronic microcytic anemia attributed to iron deficiency anemia (iron level normal 07/2022 and 06/2023). Labs during episode of knee swelling resulted in high titer positive CECY. Due to her current symptoms and chronic microcytic anemia I will further workup for systemic lupus erythematosus, Sjogren syndrome and hemolytic anemia. Code(s): R76.8 - Other specified abnormal immunological findings in serum Category: Medical Plan: Labs and urine studies ordered I ordered urine culture due to symptom of chronic urinary frequency Return to clinic in 1-2 months to review results (2) Iron deficiency anemia: Code(s): D50.9 - Iron deficiency anemia, unspecified Category: Medical Qualifiers: Iron deficiency anemia type: chronic blood loss Qualified Code(s): D50.0 - Iron deficiency anemia secondary to blood loss (chronic) Plan: See above I recommend that she discuss with PCP are iron supplementation to help treat iron deficiency anemia (3) Swelling of right knee: Comment: Resolved Code(s): M25.461 - Effusion, right knee Category: Medical Plan: Monitor clinically (4) Microcytic anemia: Comment: Chronic attributed to iron deficiency anemia. Code(s): D50.9 - Iron deficiency anemia, unspecified Category: Medical Plan: See above Orders: Orders Aspartate Amino Transferase Today D50.9 - Iron deficiency anemia, unspecified, M25.461 - Effusion, right knee, R76.8 - Other specified abnormal immunological findings in serum Creatinine Today D50.9 - Iron deficiency anemia, unspecified, M25.461 - Effusion, right knee, R76.8 - Other specified abnormal immunological findings in serum C Reactive Protein Today D50.9 - Iron deficiency anemia, unspecified, M25.461 - Effusion, right knee, R76.8 - Other specified abnormal immunological findings in serum Complement C3 Today D50.9 - Iron deficiency anemia, unspecified, M25.461 - Effusion, right knee, R76.8 - Other specified abnormal immunological findings in serum Complement C4 Today D50.9 - Iron deficiency anemia, unspecified, M25.461 - Effusion, right knee, R76.8 - Other specified abnormal immunological findings in serum UA and rflx microscopic Today D50.9 - Iron deficiency anemia, unspecified, M25.461 - Effusion, right knee, R76.8 - Other specified abnormal immunological findings in serum Urine Culture Today D50.9 - Iron deficiency anemia, unspecified, M25.461 - Effusion, right knee, R35.0 - Frequency of micturition, R76.8 - Other specified abnormal immunological findings in serum Anti DNA DS Antibody Today D50.9 - Iron deficiency anemia, unspecified, M25.461 - Effusion, right knee, R76.8 - Other specified abnormal immunological findings in serum Sjogren's Antibodies Today D50.9 - Iron deficiency anemia, unspecified, M25.461 - Effusion, right knee, R76.8 - Other specified abnormal immunological findings in serum Rheumatoid Factor Today D50.9 - Iron deficiency anemia, unspecified, M25.461 - Effusion, right knee, R76.8 - Other specified abnormal immunological findings in serum Lactate Dehydrogenase Today D50.9 - Iron deficiency anemia, unspecified Direct Jenny (HALLE) Today D50.9 - Iron deficiency anemia, unspecified Complete Blood Count Man Dif Today D50.9 - Iron deficiency anemia, unspecified, M25.461 - Effusion, right knee, R76.8 - Other specified abnormal immunological findings in serum Alanine Aminotransferase Today D50.9 - Iron deficiency anemia, unspecified, M25.461 - Effusion, right knee, R76.8 - Other specified abnormal immunological findings in serum Erythrocyte Sedimentation Rate Today D50.9 - Iron deficiency anemia, unspecified, M25.461 - Effusion, right knee, R76.8 - Other specified abnormal immunological findings in serum Protein Creatinine Ratio, Ur Today D50.9 - Iron deficiency anemia, unspecified, M25.461 - Effusion, right knee, R76.8 - Other specified abnormal immunological findings in serum Sm Sm/[employer] Antibodies Today D50.9 - Iron deficiency anemia, unspecified, M25.461 - Effusion, right knee, R76.8 - Other specified abnormal immunological findings in serum Cyclic Citrullinated Peptide Today D50.9 - Iron deficiency anemia, unspecified, M25.461 - Effusion, right knee, R76.8 - Other specified abnormal immunological findings in serum Haptoglobin Today D50.9 - Iron deficiency anemia, unspecified Coding Level of Care Code New Pt Level 4 (13437) Diagnoses Positive CECY (antinuclear antibody) R76.8 Iron deficiency anemia due to chronic blood loss D50.0 Iron deficiency anemia type: chronic blood loss Swelling of right knee M25.461 Microcytic anemia D50.9
== END 2024-07-06 11:38 | disposition home or self-care (01) ==
LOC: HO.RHES 10:50
PROVIDERS: PCP Internal Medicine; Visit Provider Internal Medicine Rheumatology
DX: R76.8 Other specified abnormal immunological findings in serum (principal); D50.0 Iron deficiency anemia secondary to blood loss (chronic); M25.461 Effusion, right knee; D50.9 Iron deficiency anemia, unspecified
CPT/HCPCS: 99204

== ENCOUNTER 2024-07-06 10:49 | Outpatient (REF) | payer OTHER, SELFPAY ==
[2024-07-06 17:43] LABS: Appearance Urine Clear; Color Urine Yellow; Glucose Urine UA Negative (Negative); Leukocyte Esterase Urine Moderate (2+) (Negative); Nitrite Urine Negative (Negative); PH 5.5 (5.0-9.0); UMIC TRIGGER UA YES; Urine Blood Negative (Negative); Urine Ketones Negative (Negative); Urine Protein Negative (Neg-Trace)
[2024-07-06 17:47] LABS: Bacteria Urine None Seen (None Seen); Hyaline Casts Urine 0-2 /LPF (0-2); RBC Urine 0-2 /HPF (0-2)
[2024-07-06 17:47] LABS: Baso%MD 0.5 %; Eos%MD 3.4 %; Hematocrit 36.2 % (37.0-47.0); Hemoglobin 11.3 g/dl (12.0-16.0); IG%MD 0.2 %; Lymph%MD 25.4 %; Mean Corpuscular HGB Conc 31.2 g/dl (31.0-35.0); Mean Corpuscular Hemoglobin 24.9 pg (27.0-33.0); Mean Corpuscular Volume 79.9 fL (80.0-98.0); Mean Platelet Volume 10.2 fL (9.4-12.3); Mono%MD 6.2 %; Neut%MD 64.3 %; Platelet Count 251 X10*3/uL (160-400); Red Blood Count 4.53 X10*6/uL (4.20-5.50); Red Cell Distribution Width 14.3 % (11.0-16.0); White Blood Count 6.4 X10*3/uL (4.8-10.8)
[2024-07-06 18:08] LABS: Haptoglobin 146 mg/dL (35-250)
[2024-07-06 18:10] LABS: Alanine Aminotransferase 24 U/L (0-31); Aspartate Amino Transferase 33 U/L (5-31); C Reactive Protein 0.92 mg/dL (< or = 0.50); Estimated Glomerular Filt Rate > 60; Lactate Dehydrogenase 261 U/L (122-220)
[2024-07-06 18:17] LABS: Creatinine Urine 112.83 mg/dL; Total Protein Urine Random < 7 mg/dL (<12)
[2024-07-06 18:17] LABS: Rheumatoid Factor < 13.0 IU/mL (<15.0)
[2024-07-06 18:30] LABS: Erythrocyte Sedimentation Rate 14 MM/HR (0-20)
[2024-07-06 18:59] LABS: Band Neutrophils Percent 0 % (3-5); Eosinophils Absolute Manual 0.3 X10*3/uL (0.0-0.4); Eosinophils Percent Manual 4 % (0-4); Lymphocytes Absolute Manual 1.5 X10*3/uL (1.2-4.9); Lymphocytes Percent Manual 24 % (20-40); Monocytes Absolute Manual 0.1 X10*3/uL (0.1-1.2); Monocytes Percent Manual 2 % (2-11); Neutrophils Absolute Manual 4.5 X10*3/uL (2.0-8.3); Neutrophils Percent Manual 70 % (45-73)
[2024-07-06 19:00] LABS: Burr Cells 3+ (>5) /OIF; Platelet Estimate NORMAL (NORMAL); Platelet Morphology Comment NORMAL; RBC Morphology NOTED
[2024-07-07 15:33] LABS: Complement C3 143 mg/dL (83-193)
[2024-07-08 13:54] LABS: Anti DNA DS Antibody <1 IU/mL; Antibody to SS-A Antigen <1.0 NEG AI (<1.0 NEG); Antibody to SS-B Antigen <1.0 NEG AI (<1.0 NEG); SM/Ribonucleoprotein Ab <1.0 NEG AI (<1.0 NEG); Smith Protein <1.0 NEG AI (<1.0 NEG)
[2024-07-08 14:53] LABS: Cyclic Citrullinated Peptide 46 UNITS
== END 2024-07-06 10:50 | disposition home or self-care (01) ==
LOC: HO.HKASLDS 10:49
PROVIDERS: PCP Internal Medicine; Visit Provider Internal Medicine Rheumatology
DX: D50.9 Iron deficiency anemia, unspecified (principal); R76.8 Other specified abnormal immunological findings in serum; M25.461 Effusion, right knee; R35.0 Frequency of micturition
CPT/HCPCS: 36415; 81001; 82565; 82570; 83010; 83615; 84156; 84450; 84460; 85007; 85027; 85652; 86140; 86160; 86200; 86225; 86235; 86431; 86880; 87086

== ENCOUNTER 2024-08-02 17:09 | Outpatient (AMB) | payer OTHER, SELFPAY ==
--- NOTE | 2024-08-02 17:11 | A.OFFPC_ITS ---
Vital Signs 08/02/24 17:13 Height 5 ft 4 in Weight 185 lb BMI 31.8 BP 126/80 Blood Pressure Location Lt brachial Position Sitting Pulse 84 Pulse Source Pulse Oximeter Pulse Oximetry (%) 99 Oxygen Delivery Method Room Air Intake Visit Reasons: Request PE Intake Note: Patient here for a physical exam Cook Vacuum Kettle Required: No Accompanied by: Self / Same As Patient Allergies No Known Allergies Allergy (Unknown, Verified 08/02/24 17:20) NOT APPLICABLE Medication List - Last Reconciled 08/02/24 by Teressa Huerta MD amlodipine 10 mg PO DAILY ascorbate calcium (vitamin C) 500 mg PO DAILY blood pressure monitor As directed ferrous sulfate ER (Slow Fe) 137 mg PO DAILY [id number] 27 mg iron- 800 mcg-235 mg (One-A-Day -1) 1 cap PO DAILY Tobacco use date assessed: 08/02/24 Dental Screening Dental Screen Date: 08/02/24 Did you have a dental visit in the last 12 months?: Yes Did you have a dental problem in the last 6 months where you did not have access to dental care?: No Was dental information given to patient?: Patient has dentist [facility] Medical History (Updated 08/02/24 @ 17:32 by Teressa Hureta MD) Cholelithiasis Back pain Menorrhagia Neck pain Biliary colic Acute back pain less than 4 weeks duration Joint pain Swelling of right knee Urinary frequency Microcytic anemia Iron deficiency anemia Obesity (BMI 30-39.9) HTN (hypertension) Surgical History (Updated 08/02/24 @ 17:32 by Teressa Huerta MD) Hx laparoscopic cholecystectomy History of laparoscopic cholecystectomy History of surgery History of breast mammoplasty Family History (Updated 08/02/24 @ 17:38 by Teressa Huerta MD) Father Medical history unknown Mother Acute CVA (cerebrovascular accident) Hypertension Sarcoma Son In good health Brother No problems noted. Sister No problems noted. 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 1. Little interest or pleasure in doing things: not at all 2. Feeling down, depressed, or hopeless: not at all 3. Trouble falling or staying asleep, or sleeping too much: several days 4. Feeling tired or having little energy: several days 5. Poor appetite or overeating: several days 6. Feeling bad about yourself - or that you are a failure or have let yourself or your family down: not at all 7. Trouble concentrating on things, such as reading the newspaper or watching television: not at all 8. Moving or speaking so slowly that other people could have noticed. Or the opposite - being so fidgety or restless that you have been moving around a lot more than usual: not at all 9. Thoughts that you would be better off or of hurting yourself in some way: not at all Total score: 3 Depression Screening Interpretation: Positive Depression Screening Done: Yes Source: Developed by Drs. Fredrick Dowling, Nell Kimbrough, Miller Vang and colleagues, with an educational aranza from [employer]. Thrive Questionnaire Date Thrive assessed: 07/27/24 I am a: Patient What is your living situation today?: I have a steady place to live Within the past 12 months, did the food you bought not last and you didn't have the money to get more?: Never true Within the past 12 months, did you worry whether your food would run out before you got money to buy more?: Never true Do you have trouble paying for medicines?: No Do you have trouble getting transportation to medical appointments?: No Do you have trouble paying your heating and electricity bill?: No Do you have trouble taking care of your child, family member or friend?: No Do you have trouble with day-to-day activities such as bathing, preparing meals, shopping, managing finances, etc.?: No Are you currently unemployed and looking for a job?: No Are you interested in more education?: I choose not to answer this question Please select the resources that you would like help with: None Currently or been in a relationship where the following occur: No concerns reported THRIVE Score: 0 AUDIT C Alcohol Use Questionnaire (AUDIT-C) 1. How often do you have a drink containing alcohol?: Monthly or less 2. How many drinks containing alcohol do you have on a typical day when you are drinking?: 1 or 2 3. How often do you have six or more drinks on one occasion?: Never Total Score: 1 JAYDEN-7 AMB Questionnaire JAYDEN-7 Date JAYDEN - 7 assessed: 08/02/24 Feeling nervous, anxious, or on edge: 1 = Several days Not being able to stop or control worryin = Not at all Worrying too much about different things: 1 = Several days Trouble relaxin = Not at all Being so restless that it is hard to sit still: 1 = Several days Becoming easily annoyed or irritable: 1 = Several days Feeling afraid as if something awful might happen: 0 = Not at all Total JAYDEN-7 score (0-4 normal; 5-9 mild; 10-14 moderate; 15-21 severe): 4 Source: Developed by Drs. Fredrick Dolwing, Nell Kimbrough, Miller Vang and colleagues, with an educational aranza from [employer]. Review of Systems Const Denies poor appetite and Denies weakness Eyes Denies no additional complaints ENT Reports Normal hearing present, Denies dizziness, Denies nasal congestion, Denies tinnitus and Denies sore throat Card Denies chest pain, Denies syncope, Denies rapid heart rate and Denies dyspnea Resp Denies cough and Denies dyspnea GI Denies change in stool character, Reports constipation, Denies diarrhea, Denies nausea and Denies vomiting Denies urinary frequency, Denies difficulty voiding and Denies dysuria Neuro Reports Normal hearing present, Denies confusion, Denies dizziness, Denies syncope and Denies weakness Psych Denies confusion Physical exam (Primary Care) Vital Signs: Last Vital Signs Pulse 84 08/02/24 17:13 BP 126/80 08/02/24 17:13 Pulse Ox 99 08/02/24 17:13 Oxygen Delivery Method Room Air 08/02/24 17:13 BMI result Body Mass Index 31.8 Tobacco/Smoking Status: Tobacco use Status Tobacco use date assessed 08/02/24 08/02/24 17:21 Patient Tobacco Use Status Never used Tobacco 08/02/24 17:21 e-Cigarette/Vaping Use Never Used 08/02/24 17:21 PHQ-9: PHQ-9 Score PHQ-9: Total score 3 08/02/24 17:21 Depression Screening Interpretation: Positive Thrive Assessment: Date of Thrive Assessment Date Thrive assessed 07/27/24 08/02/24 17:21 Currently or been in a relationship where the following occur: No concerns reported Const General: No confusion Orientation/consciousness: No confusion HENMT Head: Yes normocephalic Ears: external ears normal and TM's normal bilaterally Face and sinus: Yes normal facial exam Mouth: moist mucous membranes Throat: Yes tonsils normal Eyes Conjunctivae: conjunctivae normal Pupils: Equal, round and reactive pupils present and Pupil accommodation reflex normal Direct Ophthalmoscopy: normal light reflex Neck Neck: No lymphadenopathy Thyroid: Thyroid normal Chest Chest palpation & inspection: normal inspection of the chest Resp Effort & Inspection: normal respiratory effort and no audible wheezes Auscultation: clear to auscultation bilaterally, no crackles, no wheezes and lung sounds not diminished Cardio Rate: regular rate Rhythm: regular rhythm Peripheral pulses: radial pulses present and dorsalis pedis present GI Palpation (GI): no masses Auscultation: normal bowel sounds and normoactive bowel sounds Rectal Exam - Female: deferred Skin General skin exam: no rashes or lesions noted Rashes: no rashes Neuro General: No confusion Cranial nerves: Yes Equal, round and reactive pupils present and Yes Normal hearing present Cognition (Neuro): normal cognition Gait exam (Neuro): Normal gait present Motor exam (neuro): 5/5 motor strength present throughout Deep tendon reflexes (DTR's): Right brachioradialis reflex intensity grade: 2+, Left brachioradialis reflex intensity grade: 2+, Right patellar reflex intensity grade: 2+ and Left patellar reflex intensity grade: 2+ Extrem General: No edema Coding Level of Care Code Est Pt Prev Care 18-39y(28075) Diagnoses Annual physical exam Z00.00 Fatty liver K76.0 Essential hypertension I10 Hypertension type: essential hypertension Iron deficiency anemia due to chronic blood loss D50.0 Iron deficiency anemia type: chronic blood loss Impaired glucose metabolism R73.09 Obesity (BMI 30-39.9) E66.9 Assessment & Plan Assessment & Plan (1) Annual physical exam: Code(s): Z00.00 - Encounter for general adult medical examination without abnormal findings Category: Medical Plan: Patient is advised to eat healthy, keep well hydrated, keep active and have adequate sleep. (2) Fatty liver: Code(s): K76.0 - Fatty (change of) liver, not elsewhere classified Category: Medical Plan: Low-fat diet and exercise (3) HTN (hypertension): Code(s): I10 - Essential (primary) hypertension Category: Medical Qualifiers: Hypertension type: essential hypertension Qualified Code(s): I10 - Essential (primary) hypertension Plan: Continue with blood pressure medication. Decrease salt intake and exercise on amlodipine 10 mg once a day (4) Iron deficiency anemia: Code(s): D50.9 - Iron deficiency anemia, unspecified Category: Medical Qualifiers: Iron deficiency anemia type: chronic blood loss Qualified Code(s): D50.0 - Iron deficiency anemia secondary to blood loss (chronic) Plan: Discussed about having a workup as well as iron replacement (5) Impaired glucose metabolism: Code(s): R73.09 - Other abnormal glucose Category: Medical Plan: Decrease the amount of carbohydrate intake, pasta, bread, rice and potatoes are all sugar and that is aside from all the sweet stuff, remember that fruits are good but they are Sweet also. (6) Obesity (BMI 30-39.9): Code(s): E66.9 - Obesity, unspecified Category: Medical Plan: Diet and exercise Plan History of Present Illness The patient is a 38-year-old female presenting for an annual physical examination. She has essential hypertension, managed with amlodipine, and currently reports good control of her blood pressure. Additionally, she has a history of iron deficiency anemia, confirmed by low hemoglobin and hematocrit levels, and previous iron testing showed low ferritin. Her anemia might be exacerbated by heavy menstruation. Orthopedically, the patient had right knee swelling in January, leading to arthroscopic surgery for a meniscal tear. Follow-up with orthopedics and rheumatology also occurred. Her left knee MRI showed a grade 1 sprain and mild tendinosis. Further evaluation for a potential connective tissue disorder is in progress due to her positive NERIS screen. Obesity remains a challenge for the patient; her weight has increased since her last visit. She has been encouraged to adhere to a low-fat diet and exercise regularly to address her weight concerns. Health Maintenance - Blood pressure management with amlodipine 10 mg daily. - Discussion of iron supplementation alternatives for anemia. - Encouraged adherence to a low-fat diet and regular exercise for weight management. - Upcoming planned follow-up for possible connective tissue disorder. - Recommendations for future blood work to monitor anemia status. - Discussion of potential fasting blood work three months from now. 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 - Reports occasional alcohol consumption, approximately two drinks monthly. - No tobacco use and limited use of recreational drugs, preference for edible forms. - Admits challenges balancing work, managing two jobs, and caregiving for family. - Discussed dietary habits and the challenge of adhering to weight management while caregiving. Review of Systems - Cardiovascular: Denies chest pain, palpitations, or shortness of breath. - Respiratory: Denies shortness of breath or cough. - Gastrointestinal: Denies nausea, vomiting, and normal bowel movements. - Genitourinary: Reports increased frequency of urination before bedtime. - Neurological: Denies dizziness, headaches, or visual changes. - Musculoskeletal: Reports knee pain and history of sprain and tendinosis but denies other joint pains. - Hematologic: Reports history of heavy menstruation. Physical Exam General: Cooperative, healthy appearing, comfortable, no acute distress and well developed Orientation: Patient oriented x3 Limitations: No limitations Head: Normal to inspection Ears: Hearing grossly normal bilaterally Nose: Normal external nose present Face and sinus: Normal facial exam Eyes: Appearance normal, both eyes and all related structures Neck: Normal visual inspection and Yes full ROM Respiratory: Normal respiratory effort and able to speak in complete sentences. Clear to auscultation bilaterally Cardiovascular: Regular rate and rhythm. Normal S1 and S2 GI: Normal to inspection. Soft to palpation and nontender Skin: No rashes or lesions noted Neuro: Patient oriented x3 Extremities: Normal to inspection, recent right knee arthroscopic surgery for repair of meniscal tear, left knee MRI in November showing grade 1 sprain of the medial collateral ligament and mild distal quadriceps tendinosis Results - Labs: Hemoglobin 11.3 g/dL, Hematocrit 36.2%, mildly elevated C-reactive protein, normal renal function, negative Lyme test. - Test and Diagnostics: Positive NERIS suggestive of possible connective tissue disorder. MRI of left knee showing grade 1 sprain of MCL, mild distal quadriceps tendinosis. Plan For essential hypertension, continuation of amlodipine 10 mg daily is advised. Iron deficiency anemia management includes a trial of slow-release iron supplementation with vitamin C. Lifestyle modifications such as a low-fat diet and exercise were encouraged to manage obesity. Post-operative follow-up will be conducted for her recent knee surgery. Further rheumatological evaluation is necessary due to positive NERIS screening. Regular monitoring through blood tests is planned to assess the patient?s anemia and overall health status. Patient was informed and verbally consented to the use of an ambient scribe for clinic note documentation during this visit. Discussion Notes During the visit, I discussed the management of the patient's essential hypertension with a continued regimen of amlodipine. For her iron deficiency anemia, we considered prescribing a slow-release iron supplement to minimize side effects and improve absorption. The risks, benefits, and alternatives were addressed, including monitoring blood levels. The importance of maintaining a low-fat diet and participating in regular physical activity for weight management was emphasized. I explained that further rheumatological evaluation is warranted due to her positive NERIS, and this would include assessment for potential connective tissue disorders. We reviewed the patient?s surgical recovery from knee surgery and the ongoing need for orthopedic follow-up. I encouraged her to follow up with blood tests in three months to ensure adequate response to the proposed interventions. Patient Instructions - Continue taking amlodipine 10 mg daily for blood pressure. - Start the prescribed slow-release iron supplement with vitamin C daily. - Follow a low-fat diet and increase physical activity for weight loss. - Schedule follow-up with rheumatology to further evaluate connective tissue disorder. - Monitor your symptoms and report any new or worsening symptoms. - Return for blood work in three months to check anemia status and overall health. - Report any unusual symptoms or concerns immediately. Medications: New 2 ferrous sulfate ER (Slow Fe) 137 mg PO DAILY 90 tabs 0RF D50.0 - Iron deficiency anemia secondary to blood loss (chronic) ascorbate calcium (vitamin C) 500 mg PO DAILY 90 tabs 1RF D50.0 - Iron deficiency anemia secondary to blood loss (chronic), D50.9 - Iron deficiency anemia, unspecified tirzepatide (weight loss) (Zepbound) for 4 weeks 2.5 mg (0.5 mL) subcut QWEEK 2 mL 0RF E66.9 - Obesity, unspecified
[2024-08-02 17:13] VITALS: BP 126/80; PULSE 84; O2SAT 99; BMI 31.8
== END 2024-08-02 17:59 | disposition home or self-care (01) ==
LOC: HO.HMCH 17:09
PROVIDERS: PCP Internal Medicine; Visit Provider Internal Medicine
DX: Z00.00 Encounter for general adult medical examination without abnormal findings (principal); K76.0 Fatty (change of) liver, not elsewhere classified; Z68.31 Body mass index [BMI] 31.0-31.9, adult; E66.9 Obesity, unspecified; I10 Essential (primary) hypertension; D50.0 Iron deficiency anemia secondary to blood loss (chronic); R73.09 Other abnormal glucose

== ENCOUNTER → 2024-08-02 17:09 | Outpatient (BNVA) | payer OTHER, SELFPAY | PROVIDERS: PCP Internal Medicine; Visit Provider Internal Medicine | DX: Z13.89 Encounter for screening for other disorder (principal) ==

== ENCOUNTER 2024-09-15 13:38 | Outpatient (REF) | payer OTHER, SELFPAY ==
[2024-09-15 18:37] LABS: Alanine Aminotransferase 29 U/L (0-31); Aspartate Amino Transferase 31 U/L (5-31)
== END 2024-09-15 13:39 | disposition home or self-care (01) ==
LOC: HO.HKASLDS 13:38
PROVIDERS: PCP Internal Medicine; Visit Provider Internal Medicine Rheumatology
DX: R76.8 Other specified abnormal immunological findings in serum (principal); R74.01 Elevation of levels of liver transaminase levels; D50.0 Iron deficiency anemia secondary to blood loss (chronic)
CPT/HCPCS: 36415; 84450; 84460

== ENCOUNTER 2024-09-15 13:38 | Outpatient (AMB) | payer OTHER, SELFPAY ==
[2024-09-15 13:42] VITALS: BP 122/70; PULSE 91; O2SAT 98; BMI 32.1
--- NOTE | 2024-09-15 13:42 | MHC.OFFVIS ---
Vital Signs 09/15/24 13:42 Height 5 ft 4 in Weight 187 lb 2 oz BMI 32.1 BP 122/70 Blood Pressure Location Lt brachial Position Sitting Pulse 91 Pulse Source Pulse Oximeter Pulse Oximetry (%) 98 Oxygen Delivery Method Room Air Intake Visit Reasons: 1-2 months Intake Note: Patient presents today for a +Neris result. Allergies No Known Allergies Allergy (Unknown, Verified 09/15/24 13:45) NOT APPLICABLE HPI HPI 1-2 months: Details: Myalgias started a few weeks ago - shoulder, right proximal calf, back. She is working full-time at [employer] and has a part-time job. She has a 12-year-old son who has football practice 4 times a week, which she attends 2. No new joint swelling. History of right knee meniscus repair with subsequent development of acute right knee swelling. [facility] Medical History (Updated 09/15/24 @ 16:03 by Gabe Calderón MD) Cholelithiasis Back pain Menorrhagia Neck pain Biliary colic Acute back pain less than 4 weeks duration Joint pain Swelling of right knee Urinary frequency Microcytic anemia Iron deficiency anemia Obesity (BMI 30-39.9) HTN (hypertension) Surgical History (Updated 08/02/24 @ 17:32 by Teressa Huerta MD) Hx laparoscopic cholecystectomy History of laparoscopic cholecystectomy History of surgery History of breast mammoplasty Family History (Updated 08/02/24 @ 17:38 by Teressa Huerta MD) Father Medical history unknown Mother Acute CVA (cerebrovascular accident) Hypertension Sarcoma Son In good health Brother No problems noted. Sister No problems noted. 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 Good respiratory effort Skin: No lesions seen MSK: No synovitis. No tender joints. No knee effusion. Normal range of motion of upper extremity and lower extremity. Assessment & Plan Assessment & Plan (1) Positive NERIS (antinuclear antibody): Comment: No reoccurrence of joint swelling. 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 She does not meet criteria for systemic lupus erythematosus or Sjogren syndrome at this time. We discussed implications of having a positive anti CCP antibody, which is a risk factor for rheumatoid arthritis. Her maternal grandmother may have rheumatoid arthritis, which she will confirmed. Answered patient's questions to her satisfaction. Rheumatology history: NERIS 1:320, CCP 46. In February 2024 she presented with right knee pain and swelling that self resolved within 2-3 days without reoccurrence. History of right knee meniscus repair. History of chronic microcytic anemia attributed to iron deficiency anemia (iron level normal 07/2022 and 06/2023). Code(s): R76.8 - Other specified abnormal immunological findings in serum Category: Medical Plan: Monitor clinically Return to clinic in 6 months (2) Transaminitis: Comment: Occasionally drinks alcohol. Mild elevation in AST. Code(s): R74.01 - Elevation of levels of liver transaminase levels Category: Medical Plan: Rechecking liver function tests this visit. (3) Swelling of right knee: Comment: Resolved Code(s): M25.461 - Effusion, right knee Category: Medical Plan: Monitor clinically (4) Iron deficiency anemia: Code(s): D50.9 - Iron deficiency anemia, unspecified Category: Medical Qualifiers: Iron deficiency anemia type: chronic blood loss Qualified Code(s): D50.0 - Iron deficiency anemia secondary to blood loss (chronic) Plan: I advised her to communicate with PCP in regards to recent iron prescription that was sent as patient reports that it is not covered by her insurance Orders: Orders Alanine Aminotransferase Today R74.01 - Elevation of levels of liver transaminase levels Aspartate Amino Transferase Today R74.01 - Elevation of levels of liver transaminase levels Coding Level of Care Code Est Pt Level 4 (21945) Complex EM visit Add On G2211 Diagnoses Positive NERIS (antinuclear antibody) R76.8 Transaminitis R74.01 Swelling of right knee M25.461 Iron deficiency anemia due to chronic blood loss D50.0 Iron deficiency anemia type: chronic blood loss
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
== END 2024-09-15 14:39 | disposition home or self-care (01) ==
PROVIDERS: PCP Internal Medicine; Visit Provider Internal Medicine Rheumatology
DX: R76.8 Other specified abnormal immunological findings in serum (principal); R74.01 Elevation of levels of liver transaminase levels; M25.461 Effusion, right knee; D50.0 Iron deficiency anemia secondary to blood loss (chronic)
CPT/HCPCS: 99214

== ENCOUNTER 2024-11-23 06:34 | Outpatient (REF) | payer OTHER, SELFPAY | END 2024-11-23 06:35 | disposition home or self-care (01) | LOC: HO.LAB 06:34 | PROVIDERS: PCP Internal Medicine; Visit Provider Internal Medicine | DX: I10 Essential (primary) hypertension (principal); E78.00 Pure hypercholesterolemia, unspecified; M25.461 Effusion, right knee | CPT/HCPCS: 36415; 80053; 80061; 81001; 81003; 82306; 82607; 82728; 82746; 83540; 84439; 84443; 85025; 85045 ==

== ENCOUNTER 2024-11-29 17:02 | Outpatient (AMB) | payer OTHER, SELFPAY ==
[2024-11-29 17:04] VITALS: BP 128/76; PULSE 80; O2SAT 98; BMI 31.9
--- NOTE | 2024-11-29 17:04 | MHC.PC.OV ---
Vital Signs 11/29/24 17:04 Height 5 ft 4 in Weight 186 lb BMI 31.9 BP 128/76 Blood Pressure Location Lt brachial Position Sitting Pulse 80 Pulse Source Pulse Oximeter Pulse Oximetry (%) 98 Oxygen Delivery Method Room Air Intake Visit Reasons: obesity Allergies No Known Allergies Allergy (Unknown, Verified 11/29/24 17:05) NOT APPLICABLE Tobacco use date assessed: 08/02/24 Dental Screening Dental Screen Date: 08/02/24 [facility] Medical History (Updated 11/29/24 @ 17:21 by Teressa Huerta MD) Cholelithiasis Back pain Menorrhagia Neck pain Biliary colic Acute back pain less than 4 weeks duration Joint pain Swelling of right knee Urinary frequency Microcytic anemia Iron deficiency anemia Obesity (BMI 30-39.9) HTN (hypertension) Surgical History (Updated 08/02/24 @ 17:32 by Teressa Huerta MD) Hx laparoscopic cholecystectomy History of laparoscopic cholecystectomy History of surgery History of breast mammoplasty Family History (Updated 08/02/24 @ 17:38 by Teressa Huerta MD) Father Medical history unknown Mother Acute CVA (cerebrovascular accident) Hypertension Sarcoma Son In good health Brother No problems noted. Sister No problems noted. 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 Current occupational exposures/hazards: No Cognitive needs: No Hearing needs: No Vision needs: No Questionnaire Thrive Questionnaire Date Thrive assessed: 07/27/24 I am a: Patient What is your living situation today?: I have a steady place to live Within the past 12 months, did the food you bought not last and you didn't have the money to get more?: Never true Within the past 12 months, did you worry whether your food would run out before you got money to buy more?: Never true Do you have trouble paying for medicines?: No Do you have trouble getting transportation to medical appointments?: No Do you have trouble paying your heating and electricity bill?: No Do you have trouble taking care of your child, family member or friend?: No Do you have trouble with day-to-day activities such as bathing, preparing meals, shopping, managing finances, etc.?: No Are you currently unemployed and looking for a job?: No Are you interested in more education?: I choose not to answer this question Please select the resources that you would like help with: None Currently or been in a relationship where the following occur: No concerns reported THRIVE Score: 0 JAYDEN-7 AMB Questionnaire JAYDEN-7 Date JAYDEN - 7 assessed: 08/02/24 Source: Developed by Drs. Fredrick Dowling, Nell Kimbrough, Miller Vang and colleagues, with an educational aranza from [employer]. Physical exam (Primary Care) Vital Signs: Last Vital Signs Pulse 80 11/29/24 17:04 BP 128/76 11/29/24 17:04 Pulse Ox 98 11/29/24 17:04 Oxygen Delivery Method Room Air 11/29/24 17:04 BMI result Body Mass Index 31.9 Tobacco/Smoking Status: Tobacco use Status Tobacco use date assessed 08/02/24 11/29/24 17:08 Patient Tobacco Use Status Never used Tobacco 11/29/24 17:08 e-Cigarette/Vaping Use Never Used 11/29/24 17:08 Thrive Assessment: Date of Thrive Assessment Date Thrive assessed 07/27/24 11/29/24 17:08 Currently or been in a relationship where the following occur: No concerns reported Const General: alert; No acute distress Eyes Conjunctivae: conjunctivae normal Resp Auscultation: clear to auscultation bilaterally Cardio Rate: regular rate Rhythm: regular rhythm GI Inspection: Yes normal to inspection Extrem General: Yes normal to inspection and No edema Results AMB Hemoglobin A1c AMB Hemoglobin A1c 5.1 % Last Edit by Rosalinda Kc CMA on 11/29/24 17:35 Coding Level of Care Code Est Pt Level 4 (47035) Complex EM visit Add On G2211 Diagnoses Essential hypertension I10 Hypertension type: essential hypertension Impaired glucose metabolism R73.09 Obesity (BMI 30-39.9) E66.9 Fatty liver K76.0 Iron deficiency anemia due to chronic blood loss D50.0 Iron deficiency anemia type: chronic blood loss Positive NERIS (antinuclear antibody) R76.8 Vitamin D deficiency E55.9 Breast cancer screening by mammogram Z12.31 Onychomycosis B35.1 Assessment & Plan Assessment & Plan (1) HTN (hypertension): Code(s): I10 - Essential (primary) hypertension Category: Medical Qualifiers: Hypertension type: essential hypertension Qualified Code(s): I10 - Essential (primary) hypertension Plan: Continue with blood pressure medication. Decrease salt intake and exercise patient is taking amlodipine 10 mg once a day (2) Impaired glucose metabolism: Code(s): R73.09 - Other abnormal glucose Category: Medical Plan: Decrease the amount of carbohydrate intake, pasta, bread, rice and potatoes are all sugar and that is aside from all the sweet stuff, remember that fruits are good but they are Sweet also. (3) Obesity (BMI 30-39.9): Code(s): E66.9 - Obesity, unspecified Category: Medical Plan: Diet and exercise (4) Fatty liver: Code(s): K76.0 - Fatty (change of) liver, not elsewhere classified Category: Medical Plan: Low-fat diet and exercise (5) Iron deficiency anemia: Code(s): D50.9 - Iron deficiency anemia, unspecified Category: Medical Qualifiers: Iron deficiency anemia type: chronic blood loss Qualified Code(s): D50.0 - Iron deficiency anemia secondary to blood loss (chronic) Plan: Discussion regarding iron deficiency (6) Positive NERIS (antinuclear antibody): Comment: No reoccurrence of joint swelling. 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 She does not meet criteria for systemic lupus erythematosus or Sjogren syndrome at this time. We discussed implications of having a positive anti CCP antibody, which is a risk factor for rheumatoid arthritis. Her maternal grandmother may have rheumatoid arthritis, which she will confirmed. Answered patient's questions to her satisfaction. Rheumatology history: NERIS 1:320, CCP 46. In February 2024 she presented with right knee pain and swelling that self resolved within 2-3 days without reoccurrence. History of right knee meniscus repair. History of chronic microcytic anemia attributed to iron deficiency anemia (iron level normal 07/2022 and 06/2023). Code(s): R76.8 - Other specified abnormal immunological findings in serum Category: Medical Plan: Patient has seen Rheumatology and with her not manifesting any signs of inflammatory joint disease will continue to monitor. (7) Vitamin D deficiency: Code(s): E55.9 - Vitamin D deficiency, unspecified Category: Medical Plan: Vitamin-D 2450-2590 units once a day (8) Breast cancer screening by mammogram: Code(s): Z12.31 - Encounter for screening mammogram for malignant neoplasm of breast Category: Medical (9) Onychomycosis: Code(s): B35.1 - Tinea unguium Category: Medical Plan History of Present Illness The patient is a 39-year-old female presenting for a follow-up visit for impaired glucose tolerance, hypertension, fatty liver, and iron deficiency anemia. The patient has a history of impaired glucose tolerance with recent blood work showing elevated blood sugar levels at 139 mg/dL, which is above the normal fasting range of 70 to 99 mg/dL. The patient is concerned about the possibility of developing diabetes, and a repeat hemoglobin A1c test is planned to confirm the diagnosis. The patient has a history of hypertension and is currently on amlodipine 10 mg once daily for blood pressure management. The patient has been diagnosed with fatty liver, with liver function tests showing mild elevation to 38. The patient has iron deficiency anemia, with a recent blood count showing a hemoglobin level of 11.8 g/dL, slightly below the normal range. The patient takes iron supplements and vitamin C to manage the anemia, which is attributed to heavy menstruation during the first three days of her cycle. The patient reports a history of myalgia and was seen by rheumatology in August 2024, with positive NERIS and anti-CCP antibody tests, but does not meet criteria for systemic lupus or Sjogren's syndrome. The patient has a vitamin D deficiency and is advised to take 1000 to 2000 units daily. The patient reports a toenail fungus on one of her big toes, which she has been managing with cosmetic measures but plans to seek podiatry consultation for treatment. Health Maintenance - Mammogram recommended for screening - Vitamin D supplementation advised - Dietary modifications to reduce sugar intake discussed Social History - Employment: Patient is on the go 23/09, indicating a busy lifestyle. - Exercise: Discussed the importance of balancing diet with physical activity. Review of Systems - Endocrine: Reports elevated blood sugar levels. - Musculoskeletal: Reports myalgia. - Hematologic: Reports chronic iron deficiency anemia. - Dermatologic: Reports toenail fungus. Physical Exam Results - Labs: Blood sugar elevated to 139 mg/dL, hemoglobin 11.8 g/dL, mild liver function elevation to 38, vitamin D low. - Tests: Positive NERIS and anti-CCP antibody tests. Plan Patient was informed and verbally consented to the use of an ambient scribe for clinic note documentation during this visit. 1. Impaired Glucose Tolerance The patient has impaired glucose tolerance with a recent blood sugar level of 139 mg/dL, which is above the normal fasting range. A repeat hemoglobin A1c test is planned to confirm the diagnosis of diabetes. Dietary modifications to reduce sugar intake were discussed, emphasizing the need to balance carbohydrate consumption with physical activity. 2. Hypertension The patient is currently on amlodipine 10 mg once daily for hypertension management. 3. Fatty Liver The patient has been diagnosed with fatty liver, with liver function tests showing mild elevation. 4. Iron Deficiency Anemia The patient has iron deficiency anemia with a hemoglobin level of 11.8 g/dL. She is taking iron supplements and vitamin C to manage the condition, which is attributed to heavy menstruation. 5. Vitamin D Deficiency The patient is advised to take vitamin D supplements, 1000 to 2000 units daily, to address the deficiency. 6. Toenail Fungus The patient reports a toenail fungus and plans to seek podiatry consultation for treatment. Discussion Notes During the visit, we discussed the patient's impaired glucose tolerance and the need for a repeat hemoglobin A1c test to confirm the diagnosis of diabetes. We also reviewed the patient's current management of hypertension with amlodipine and the importance of dietary modifications to manage blood sugar levels. The patient was advised to continue taking vitamin D supplements and to seek podiatry consultation for toenail fungus treatment. Patient Instructions - Continue taking amlodipine 10 mg once daily for blood pressure management. - Follow dietary modifications to reduce sugar intake and balance with physical activity. - Take vitamin D supplements, 1000 to 2000 units daily. - Schedule a podiatry consultation for toenail fungus treatment. - Return for a repeat hemoglobin A1c test as scheduled. Orders: Orders MM tomosynthesis screening BI Today Z12.31 - Encounter for screening mammogram for malignant neoplasm of breast Comprehensive Met. Panel 3 Months R73.09 - Other abnormal glucose Complete Blood Count Auto Diff 3 Months R73.09 - Other abnormal glucose Hemoglobin A1c 3 Months R73.09 - Other abnormal glucose AMB Hemoglobin A1c Today Z13.9 - Encounter for screening, unspecified Referrals Podiatry Referral B35.1 - Tinea unguium
== END 2024-11-29 17:37 | disposition home or self-care (01) ==
LOC: HO.HMCH 17:03
PROVIDERS: PCP Internal Medicine; Visit Provider Internal Medicine
DX: I10 Essential (primary) hypertension (principal); R73.09 Other abnormal glucose; Z68.31 Body mass index [BMI] 31.0-31.9, adult; E66.9 Obesity, unspecified; K76.0 Fatty (change of) liver, not elsewhere classified; D50.0 Iron deficiency anemia secondary to blood loss (chronic); R76.8 Other specified abnormal immunological findings in serum; E55.9 Vitamin D deficiency, unspecified; Z12.31 Encounter for screening mammogram for malignant neoplasm of breast; B35.1 Tinea unguium

== ENCOUNTER → 2024-11-29 17:02 | Outpatient (BNVA) | payer OTHER, SELFPAY | PROVIDERS: PCP Internal Medicine; Visit Provider Internal Medicine | DX: I10 Essential (primary) hypertension (principal); E66.9 Obesity, unspecified; R73.09 Other abnormal glucose; K76.0 Fatty (change of) liver, not elsewhere classified; D50.0 Iron deficiency anemia secondary to blood loss (chronic); R76.8 Other specified abnormal immunological findings in serum; E55.9 Vitamin D deficiency, unspecified; B35.1 Tinea unguium; Z68.31 Body mass index [BMI] 31.0-31.9, adult | CPT/HCPCS: 83036 ==

== ENCOUNTER 2024-12-29 10:49 | Outpatient (REF) | payer OTHER, SELFPAY | END 2024-12-29 10:50 | disposition home or self-care (01) | LOC: HO.LNP 10:49 | PROVIDERS: PCP Internal Medicine; Visit Provider Student in an Organized Health Care Education/Training Program | DX: B35.1 Tinea unguium (principal); B35.3 Tinea pedis | CPT/HCPCS: 87101; 87220; 88304; 88312 ==

== ENCOUNTER 2024-12-29 10:49 | Outpatient (AMB) | payer OTHER, SELFPAY ==
[2024-12-29 11:09] VITALS: BMI 32.1
--- NOTE | 2024-12-29 11:09 | A.OFFVIS_ITS ---
Vital Signs 3 12/29/24 11:09 Height 5 ft 4 in Weight 187 lb BMI 32.1 Intake Visit Reasons: Onychomycosis Intake Note: Phoebe is a 39 year old female who presents to the office today as a new patient visit referred by her PCP Dr. Huerta for Onychomycosis. Pt states the fungus has been going on for about 5 years ago and she believes this has started after getting a pedicure done at the nail salon. She states the treatments she has tried was a 7 day nail fungus serum and has found no relief for her symptoms. Allergies No Known Allergies Allergy (Unknown, Verified 12/29/24 11:09) NOT APPLICABLE HPI HPI Onychomycosis: Details: The patient is a 39-year-old female past medical history of HTN presenting with concerns regarding big toenail abnormalities. She states that the nails have grown differently for about 5 years ago and she believes this has started after getting a pedicure done at the nail salon. She states the treatments she has tried was a 7 day nail fungus serum and has found no relief for her symptoms. The patient recalls previous experiences with toenail issues, including left foot partial nail avulsion. She expresses concern about the potential need for needles, as past procedures have caused significant discomfort. 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 - Family: Takes care of her disabled mother and works multiple jobs to support her family. - Family: Full-time mother with a son involved in sports activities. [facility] Medical History (Updated 12/29/24 @ 11:46 by Jelani Chambers DPM) Cholelithiasis Back pain Menorrhagia Neck pain Biliary colic Acute back pain less than 4 weeks duration Joint pain Swelling of right knee Urinary frequency Microcytic anemia Iron deficiency anemia Obesity (BMI 30-39.9) HTN (hypertension) Surgical History (Updated 08/02/24 @ 17:32 by Teressa Huerta MD) Hx laparoscopic cholecystectomy History of laparoscopic cholecystectomy History of surgery History of breast mammoplasty Family History (Updated 08/02/24 @ 17:38 by Teressa Huerta MD) Father Medical history unknown Mother Acute CVA (cerebrovascular accident) Hypertension Sarcoma Son In good health Brother No problems noted. Sister No problems noted. 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 Neuro: Protective sensation grossly intact to bilateral lower extremities MSK: No pain on palpation on bilateral hallux nails. Assessment & Plan Assessment & Plan (1) Tinea unguium: Code(s): B35.1 - Tinea unguium Category: Medical Plan: * Nail biopsy performed of bilateral hallux nail. * Discussed treatment options including topical treatment versus oral antifungal medications. * Explained that oral antifungals such as terbinafine (Lamisil) may cause gastrointestinal upset, headache, rash, taste disturbances, and hepatotoxicity. Baseline and monthly liver function monitoring is recommended during therapy. Patients should be advised to report symptoms such as jaundice, dark urine, or persistent nausea. * Patient was counseled on the importance of anti-fungal foot hygiene, including daily washing and thorough drying of feet, regular changing of socks, and use of breathable footwear. Recommended antifungal sprays shoes. Education provided on keeping toenails trimmed and clean to reduce risk of fungal infections. Preventive strategies discussed to minimize recurrence of fungal infections. * Rx ciclopirox * Follow up in 1 month (2) Tinea pedis: Code(s): B35.3 - Tinea pedis Category: Medical Qualifiers: Laterality: bilateral Qualified Code(s): B35.3 - Tinea pedis Plan: * Rx Clotrimazole ointment Orders: Orders 2 Fungus Cult Hair/Skin/Nail Today B35.1 - Tinea unguium, B35.3 - Tinea pedis Surgical Today B35.1 - Tinea unguium Medications: New 2 clotrimazole 1% 1 appl topical BID 30 grams 3RF Tinea pedis 4 weeks B35.1 - Tinea unguium, B35.3 - Tinea pedis ciclopirox 8% Applied to fungal toenails daily. Remove buildup at the end of the week. 1 appl topical BEDTIME 6.6 mL 3RF onychomycosis 4 months B35.1 - Tinea unguium Coding Level of Care Code New Pt Level 4 (39312) Diagnoses Tinea unguium B35.1 Tinea pedis of both feet B35.3 Laterality: bilateral Time Spent (min) 30
== END 2024-12-29 11:36 | disposition home or self-care (01) ==
LOC: HO.HPODS 10:50
PROVIDERS: PCP Internal Medicine; Visit Provider Student in an Organized Health Care Education/Training Program
DX: B35.1 Tinea unguium (principal); B35.3 Tinea pedis
CPT/HCPCS: 99204

== ENCOUNTER 2025-01-20 15:16 | Outpatient (REF) | payer OTHER, SELFPAY ==
--- NOTE | ~2025-01-20 | MM_ITS ---
EXAMINATION: MM SCREENING DIGITAL BREAST TOMOSYNTHESIS, BILATERAL CLINICAL INFORMATION: Screening. Asymptomatic. History of bilateral reduction mammoplasty. COMPARISON: None. This is a baseline study. TECHNIQUE: Digital breast tomosynthesis is performed in mediolateral oblique and craniocaudal views along with computer-aided detection (CAD). Synthesized 2D images are generated from the tomosynthesis. FINDINGS: BREAST COMPOSITION: The breasts are heterogeneously dense, which may obscure small masses. BILATERAL BREASTS: Status post bilateral reduction mammoplasty. No significant masses, suspicious calcifications or other abnormalities are seen in either breast. MM/MM tomosynthesis screening BI IMPRESSION: BILATERAL BREASTS: Benign, no mammographic evidence of malignancy. Normal interval follow-up is recommended in 12 months. ASSESSMENT: BI-RADS: Category 2: Benign RECOMMENDATION: Routine annual mammography screening. FOLLOW-UP: 1 year F/U This examination should not preclude the clinical evaluation of a suspicious palpable abnormality. This patient's information was entered into a reminder system with a target due date for their next mammogram. Electronically signed by: Vasile Lopez MD 01/24/2025 12:13 PM [facility]
== END 2025-01-20 15:17 | disposition home or self-care (01) ==
LOC: HO.MAMMO 15:16
PROVIDERS: PCP Internal Medicine; Visit Provider Internal Medicine
DX: Z12.31 Encounter for screening mammogram for malignant neoplasm of breast (principal)
CPT/HCPCS: 77063; 77067

== ENCOUNTER → 2025-01-20 15:30 | Outpatient (BNV) | payer OTHER, SELFPAY | PROVIDERS: PCP Internal Medicine; Visit Provider Radiology Body Imaging | DX: Z12.31 Encounter for screening mammogram for malignant neoplasm of breast (principal) | CPT/HCPCS: 77063; 77067 ==

== ENCOUNTER 2025-01-24 06:30 | Outpatient (REF) | payer OTHER, SELFPAY ==
[2025-01-24 06:53] LABS: MANUAL DIFF FLAG NO
[2025-01-24 08:15] LABS: Hematocrit 39.0 % (37.0-47.0); Hemoglobin 12.3 g/dl (12.0-16.0); Imm Gran Abs Auto 0.02 X10*3/uL (0.00-0.03); Imm Gran Pct Auto 0.3 % (0.0-0.4); Lymphocytes Absolute Auto 1.9 X10*3/uL (1.2-4.9); Mean Corpuscular HGB Conc 31.5 g/dl (31.0-35.0); Mean Corpuscular Hemoglobin 25.2 pg (27.0-33.0); Mean Corpuscular Volume 79.8 fL (80.0-98.0); NRBC Abs Auto 0.000 X10*3/uL (0.0-0.012); NRBC Pct Auto 0.0 /100WBC (0.0-0.2); Platelet Count 261 X10*3/uL (160-400); Red Blood Count 4.89 X10*6/uL (4.20-5.50); White Blood Count 6.6 X10*3/uL (4.8-10.8)
[2025-01-24 08:36] LABS: Alanine Aminotransferase 32 U/L (0-31); Albumin Level 4.7 g/dL (3.5-5.0); Alkaline Phosphatase 67 U/L (39-117); Anion Gap 11 (12-20); Aspartate Amino Transferase 25 U/L (5-31); Blood Urea Nitrogen 9 mg/dL (9-16); Calcium 9.1 mg/dL (8.4-10.2); Carbon Dioxide 25 mmol/L (22-29); Chloride 104 mmol/L (96-108); Estimated Glomerular Filt Rate > 60; Potassium 3.1 mmol/L (3.3-5.1); Sodium 137 mmol/L (135-145); Total Protein 7.9 g/dL (6.5-8.0)
== END 2025-01-24 06:31 | disposition home or self-care (01) ==
LOC: HO.LAB 06:30
PROVIDERS: PCP Internal Medicine; Visit Provider Internal Medicine
DX: R73.09 Other abnormal glucose (principal)
CPT/HCPCS: 36415; 80053; 83036; 85025

== ENCOUNTER 2025-01-31 14:59 | Outpatient (AMB) | payer OTHER, SELFPAY ==
[2025-01-31 15:14] VITALS: BMI 32.1
--- NOTE | 2025-01-31 15:14 | A.OFFVIS_ITS ---
Vital Signs 3 01/31/25 15:14 Height 5 ft 4 in Weight 187 lb BMI 32.1 Intake Visit Reasons: fu onychomycosis Intake Note: Phoebe is a 39 year old female who presents today for a follow up on her on her onychomycosis. At her last visit she was prescribed clotrimazole 1% for athletes foot and ciclopirox 8 % for her Tinea unguium. Her toe nails were debrided as well and specimens where sent out for pathology and microbiology . Patient reports she has seen improvement since starting these medications and she has no questions or concerns at this time. Allergies No Known Allergies Allergy (Unknown, Verified 01/31/25 15:15) NOT APPLICABLE HPI HPI fu onychomycosis: Details: The patient is a 39-year-old female past medical history of HTN returns for nail biopsy review for bilateral big toenail abnormalities. She has been applying both topical medications and has seen significant improvement. History: She states that the nails have grown differently for about 5 years ago and she believes this has started after getting a pedicure done at the nail salon. She states the treatments she has tried was a 7 day nail fungus serum and has found no relief for her symptoms. The patient recalls previous experiences with toenail issues, including left foot partial nail avulsion. She expresses concern about the potential need for needles, as past procedures have caused significant discomfort. 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 - Family: Takes care of her disabled mother and works multiple jobs to support her family. - Family: Full-time mother with a son involved in sports activities. [facility] Medical History (Updated 12/29/24 @ 11:46 by Jelani Chambers DPM) Cholelithiasis Back pain Menorrhagia Neck pain Biliary colic Acute back pain less than 4 weeks duration Joint pain Swelling of right knee Urinary frequency Microcytic anemia Iron deficiency anemia Obesity (BMI 30-39.9) HTN (hypertension) Surgical History (Updated 08/02/24 @ 17:32 by Teressa Huerta MD) Hx laparoscopic cholecystectomy History of laparoscopic cholecystectomy History of surgery History of breast mammoplasty Family History (Updated 08/02/24 @ 17:38 by Teressa Huerta MD) Father Medical history unknown Mother Acute CVA (cerebrovascular accident) Hypertension Sarcoma Son In good health Brother No problems noted. Sister No problems noted. 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 Neuro: Protective sensation grossly intact to bilateral lower extremities MSK: No pain on palpation on bilateral hallux nails. Results Reviewed Results Reviewed: Bilateral hallux nail micro: Fungus Cult Hair/Skin/Nail Final 01/29/25-1158 No fungal growth at 4 Weeks. Bilateral hallux nail pathology: Bilateral hallux nail, excision: Portion of nail plate with dystrophic changes; negative for fungal organisms (PASF) Assessment & Plan Assessment & Plan (1) Tinea unguium: Code(s): B35.1 - Tinea unguium Category: Medical Plan: * Nail biopsy reviewed of bilateral hallux nail. * Due to negative results, she was recommended continuing topical treatment and avoiding oral antifungal at this time. Continue ciclopirox * Follow up in 2 months (2) Tinea pedis: Code(s): B35.3 - Tinea pedis Category: Medical Qualifiers: Laterality: bilateral Qualified Code(s): B35.3 - Tinea pedis Plan: * Continue Clotrimazole ointment Coding Level of Care Code Est Pt Level 3 (97306) Diagnoses Tinea unguium B35.1 Tinea pedis of both feet B35.3 Laterality: bilateral Time Spent (min) 20
== END 2025-01-31 15:22 | disposition home or self-care (01) ==
LOC: HO.HPODS 15:00
PROVIDERS: Visit Provider Student in an Organized Health Care Education/Training Program
DX: B35.1 Tinea unguium (principal); B35.3 Tinea pedis
CPT/HCPCS: 99213